=== PATIENT | male | born 1970 | race Caucasian/White ===

== ENCOUNTER 2017-10-29 19:03 | Emergency (ER) | payer BC, SELFPAY ==
[2017-10-29 19:05] VITALS: BP 151/91; PULSE 69; RESP 20; TEMP 36.8; O2SAT 99; BMI 39.6
[2017-10-29 19:53] LABS: Absolute Neutrophil Count 6.2 X10^3/uL (2.0-7.7); Basophil# 0.02 X10^3/uL; Basophil% 0.2 % (0-1); Eosinophil# 0.27 X10^3/uL; Eosinophils% 2.9 % (0-5); Hematocrit 41.4 % (40-54); Lymphocyte % 23.4 % (19-41); Mean Corp Hgb Conc 33.8 g/gl (32-36); Mean Corpuscular Hgb 28.3 pg (27.0-32.0); Mean Corpuscular Volume 83.8 fL (80-94); Monocyte# 0.68 X10^3/uL; Monocyte% 7.2 % (0-10); Neutrophil # 6.21 X10^3/uL (2.7-7.7); Neutrophil % 66.2 % (47-70); Platelet Count 179 K/mm3 (150-450); RBC Distribution Width SD 39.1 fl (35.1-43.9); Red Blood Count 4.94 M/mm3 (4.6-6.2); White Blood Count 9.4 K/mm3 (4.4-11.0)
[2017-10-29 19:56] LABS: POSITIVE COUNT NO; POSITIVE DIFFERENTIAL NO; POSITIVE MORPHOLOGY NO
[2017-10-29 20:14] LABS: Anion Gap 10 (5-15); BUN 13 mg/dL (7-18); BUN/Creat Ratio 12.5 RATIO (10-20); Chloride 105 mmol/L (98-107); Creatinine, Serum 1.04 mg/dL (0.70-1.30); EST Glomerular Filtration Rate 82 mL/min (>60); Est Glom Filt Rate - Afr Amer 99 mL/min (>60); Estimated Creatinine Clearance 97.41 ml/min; Glucose 87 mg/dL (74-106); Potassium 3.6 mmol/L (3.5-5.1); Sodium Level 142 mmol/L (136-145)
--- NOTE | 2017-10-29 20:24 | RAD_ITS ---
STUDY: X-RAY CHEST REASON FOR EXAM: Male, 47 years old. Chest pain TECHNIQUE: 2 views of the chest were obtained COMPARISON: December 17, 2012 chest radiograph FINDINGS: No lung consolidation, pleural effusion or pneumothorax. Bilateral perihilar streaky opacities. Degenerative changes in the thoracic spine. Cardiac size is within normal limits. Osseous structures demonstrate no acute abnormalities. IMPRESSION: No evidence for focal airspace disease. Electronically Signed: Luis Wood, at 20:38 EDT Tel , Service support , RAD/Chest PA and Lateral
--- NOTE | 2017-10-29 22:08 | ED.RN ---
reji external grinder tender nurse made aware pt left without being seen with iv in hand.
== END 2017-10-29 22:44 | disposition left against medical advice (07) ==
LOC: ED 22:29
PROVIDERS: Emergency Provider Emergency Medicine; Family Provider Family Medicine; PCP Family Medicine
DX: R07.9 Chest pain, unspecified (principal)
CPT/HCPCS: 71046; 80048; 84484; 85025; A4216

== ENCOUNTER → 2017-10-31 11:26 | Outpatient (CLI) | payer BC, SELFPAY ==
[2017-10-31 14:18] LABS: Absolute Lymphocyte Count 1.31 X10^3/ul (0.83-4.51); Absolute Neutrophil Count 3.8 X10^3/uL (2.0-7.7); Basophil# 0.02 X10^3/uL; Basophil% 0.3 % (0-1); Eosinophil# 0.28 X10^3/uL; Eosinophils% 4.7 % (0-5); Hematocrit 44.3 % (40-54); Hemoglobin 15.2 g/dl (13.0-16.5); Lymphocyte # 1.31 X10^3/ul (4.0); Lymphocyte % 22.2 % (19-41); Mean Corp Hgb Conc 34.3 g/gl (32-36); Mean Corpuscular Volume 84.5 fL (80-94); Mean Platelet Vol. 9.8 fl (6.2-12.0); Monocyte# 0.44 X10^3/uL; Monocyte% 7.5 % (0-10); Neutrophil # 3.83 X10^3/uL (2.7-7.7); Platelet Count 203 K/mm3 (150-450); Red Blood Count 5.24 M/mm3 (4.6-6.2); White Blood Count 5.9 K/mm3 (4.4-11.0)
[2017-10-31 14:21] LABS: POSITIVE COUNT NO; POSITIVE DIFFERENTIAL NO; POSITIVE MORPHOLOGY NO
[2017-10-31 14:42] LABS: ALB/GLOB Ratio 0.9 RATIO (0.9-2.4); AST(SGOT) 35 U/L (15-37); Alanine Aminotransfer ALT/SGPT 67 U/L (16-61); Alkaline Phosphatase 81 U/L (45-117); Anion Gap 6 (5-15); BUN 17 mg/dL (7-18); BUN/Creat Ratio 15.3 RATIO (10-20); Calcium,Total 9.8 mg/dL (8.5-10.1); Chloride 103 mmol/L (98-107); Creatinine, Serum 1.11 mg/dL (0.70-1.30); EST Glomerular Filtration Rate 76 mL/min (>60); Est Glom Filt Rate - Afr Amer 92 mL/min (>60); Globulin 4.5 g/dL (2.2-4.2); Glucose 108 mg/dL (74-106); Potassium 4.3 mmol/L (3.5-5.1); Protein, Total 8.5 g/dL (6.4-8.2); Sodium Level 140 mmol/L (136-145); Thyroid Stim Hormone (TSH) 2.51 uIU/mL (0.358-3.74)
== END ==
PROVIDERS: Family Provider Family Medicine; PCP Family Medicine; Visit Provider Family Medicine
DX: F32.9 Major depressive disorder, single episode, unspecified (principal)
CPT/HCPCS: 36415; 80053; 84443; 85025

== ENCOUNTER → 2018-06-28 15:07 | Outpatient (CLI) | payer OTHER, SELFPAY ==
--- NOTE | 2018-06-28 15:13 | RAD_ITS ---
STUDY: X-RAY CHEST REASON FOR EXAM: Male, 47 years old. Bronchitis TECHNIQUE: PA and lateral views of the chest. COMPARISON: 10/29/2017 FINDINGS: The lungs are clear and expanded. There is no demonstrated pleural abnormality. Normal size heart. Normal mediastinum and truman. Normal visualized pulmonary arteries. Normal visualized aortic arch and descending thoracic aorta. There are diffuse degenerative changes of the visualized thoracic spine. Normal visualized ribs, clavicles, and shoulders. There is no demonstrated abnormality of the visualized soft tissue structures of the upper abdomen. RAD/Chest PA and Lateral IMPRESSION: No airspace consolidation or pleural effusion. Stable exam. Electronically Signed: Willian Jones MD at 15:29 EST , Service support ,
== END ==
PROVIDERS: Family Provider Family Medicine; PCP Family Medicine; Referring Provider Family Medicine; Visit Provider Family Medicine
DX: J40 Bronchitis, not specified as acute or chronic (principal)
CPT/HCPCS: 71046

== ENCOUNTER → 2019-07-30 11:25 | Outpatient (CLI) | payer OTHER, SELFPAY ==
--- NOTE | 2019-07-30 11:31 | RAD_ITS ---
STUDY: X-RAY CHEST REASON FOR EXAM: Male, 48 years old. Acute bronchitis, sob and cough x 4 days TECHNIQUE: PA and lateral views of the chest. COMPARISON: Comparison is made with prior examination dated June 28, 2018. FINDINGS: Hyperinflation. The lungs are clear. There is no demonstrated pleural abnormality. Normal size heart. Normal mediastinum and truman. Normal visualized pulmonary arteries. There is atherosclerotic tortuosity of the aortic arch and descending thoracic aorta. There are diffuse degenerative changes of the visualized thoracic spine. Normal visualized ribs, clavicles, and shoulders. There is no demonstrated abnormality of the visualized soft tissue structures of the upper abdomen. RAD/Chest PA and Lateral IMPRESSION: Hyperinflation. The lungs are clear. Electronically Signed: Josias Logan, at 13:10 EDT , Service support ,
== END ==
PROVIDERS: PCP Family Medicine; Referring Provider Family Medicine; Visit Provider Family Medicine
DX: J20.9 Acute bronchitis, unspecified (principal)
CPT/HCPCS: 71046

== ENCOUNTER → 2019-08-18 14:28 | Outpatient (CLI) | payer OTHER, SELFPAY ==
[2019-08-18 18:06] LABS: Absolute Neutrophil Count 6.8 X10^3/uL (2.0-7.7); Basophil# 0.04 X10^3/uL; Basophil% 0.4 % (0-1); Eosinophil# 0.19 X10^3/uL; Hematocrit 45.1 % (40-54); Hemoglobin 14.8 g/dL (13.0-16.5); Lymphocyte % 18.2 % (19-41); Mean Corp Hgb Conc 32.8 g/dL (32-36); Mean Corpuscular Hgb 27.8 pg (27.0-32.0); Mean Corpuscular Volume 84.6 fL (80-94); Mean Platelet Vol. 9.6 fl (6.2-12.0); Monocyte# 0.53 X10^3/uL; Monocyte% 5.7 % (0-10); NRBC Flagged by Analyzer 0 % (0-5); Neutrophil # 6.82 X10^3/uL (2.7-7.7); Neutrophil % 73.3 % (47-70); Platelet Count 231 K/mm3 (150-450); RBC Distribution Width CV 12.4 % (11.6-14.6); RBC Distribution Width SD 37.8 fl (35.1-43.9); Red Blood Count 5.33 M/mm3 (4.6-6.2); White Blood Count 9.3 K/mm3 (4.4-11.0)
[2019-08-18 18:20] LABS: Erythrocyte Sedimentation Rate 11 mm/hr (0-15)
[2019-08-18 18:31] LABS: Internal QC Validated? YES +Cl - CLEAR BKGD; Monotest Negative (Negative)
[2019-08-18 18:35] LABS: ALB/GLOB Ratio 1.1 RATIO (0.9-2.4); AST(SGOT) 27 U/L (15-37); Alanine Aminotransfer ALT/SGPT 47 U/L (16-61); Albumin, Serum 4.3 g/dL (3.2-5.0); Alkaline Phosphatase 79 U/L (45-117); Anion Gap 7 (5-15); BUN 15 mg/dL (7-18); BUN/Creat Ratio 12.4 RATIO (10-20); Calcium,Total 9.4 mg/dL (8.5-10.1); Chloride 103 mmol/L (98-107); Creatinine, Serum 1.21 mg/dL (0.70-1.30); EST Glomerular Filtration Rate 68 mL/min (>60); Est Glom Filt Rate - Afr Amer 82 mL/min (>60); Glucose 83 mg/dL (74-106); Potassium 3.4 mmol/L (3.5-5.1); Protein, Total 8.3 g/dL (6.4-8.2); Sodium Level 137 mmol/L (136-145); Thyroid Stim Hormone (TSH) 3.96 uIU/mL (0.358-3.74)
== END ==
PROVIDERS: PCP Family Medicine; Referring Provider Family Medicine; Visit Provider Family Medicine
DX: R53.83 Other fatigue (principal)
CPT/HCPCS: 36415; 80053; 84443; 85025; 85652; 86308

== ENCOUNTER 2019-10-01 13:32 | Emergency (ER) | payer OTHER, SELFPAY ==
[2019-10-01 13:34] VITALS: BP 132/85; PULSE 64; RESP 17; TEMP 36.3; O2SAT 97; BMI 37.8
--- NOTE | 2019-10-01 13:47 | CT_ITS ---
STUDY: CT BRAIN WITHOUT CONTRAST REASON FOR EXAM: Male, 49 years old. PT STATED HIT POSTERIOR HEAD AT WORK TODAY RADIATION DOSAGE (If Supplied By Facility): CTDIvol = ( 60.81 ) mGy, DLP = ( 1021.47 ) mGycm TECHNIQUE: Transaxial CT imaging of the brain was performed without administration of intravenous contrast material. Individualized dose optimization techniques were used for this CT. COMPARISON: No relevant priors. FINDINGS: Normal soft tissue structures. Normal calvarium. Normal size ventricles and extra-axial spaces for the patient''s age. Normal white matter tracts of the cerebral hemispheres. Normal basal ganglia and thalami. Normal brainstem. Normal cerebellum. There is no intracranial hemorrhage. There are no findings of an acute ischemic infarction. Normal visualized paranasal sinuses. CT/Brain/Head without Contrast IMPRESSION: Normal unenhanced CT scan of the brain. Electronically Signed: Josias Logan, at 14:29 EDT , Service support ,
--- NOTE | 2019-10-01 13:47 | ED.VIS.GEN ---
History of Present Illness Chief Complaint: Head Injury Informant: Patient Onset: Today Context: Gradual Onset Current Severity: Moderate Maximum Severity: Moderate Narrative: Patient presents secondary to head injury. Around 7 AM this morning he was walking through a door at work when the metal closing mechanism broke and hit him in the back of the head. He was not knocked to the ground. He did take pain away at that time. As the day has progressed he has had increasing headache to the left posterior scalp radiating up across the left scalp. He does report some nausea and light sensitivity. He denies neck pain or pain radiating to his arms. - Past Medical History (1) Hypothyroid Status: Chronic (2) Depression Status: Chronic Past Medical History - Allergies and Home Meds Allergies/Adverse Reactions: Allergies No Known Allergies Allergy (Verified 10/01/19 13:33) Primary Care Physician: Ele Bird MD [Primary Care Provider] - Prior records reviewed: Yes Surgical History: tonsillectomy, Microdiscectomy of the back Lives: Spouse/ Significant Other Smoking Status: Never smoker Review of Systems General: Denies: Chills, Fever Eyes: Reports: - - Mild light sensitivity. Denies: Visual changes - bilaterally ENT: Denies: Bilateral ear pain, Sore throat Cardiovascular: Denies: Chest pain Respiratory: Denies: Dyspnea, Cough Gastrointestinal: Reports: Nausea. Denies: Abdominal pain, Vomiting Musculoskeletal: Denies: Neck pain, Back pain Skin: Denies: Rash, Wounds Neurological: Reports: Headache. Denies: Weakness, Parasthesia, Numbness Hematologic: Denies: Easy bruising, Easy bleeding Allergy: Denies: Uticaria Physical Exam Vital Signs/Narrative: Vital Signs Temp Pulse Resp BP Pulse Ox 10/01/19 13:34 97.3 F L 64 17 132/85 H 97 Inital Vital Signs reviewed: Yes General: Well nourished, Well developed Head: Normocephalic, Atraumatic, - - No lacerations, abrasions, or ecchymosis. ENT: Moist mucous membranes Neck: Supple, - - No cervical tenderness. Cardiovascular: Regular rate, Regular rhythm Respiratory: No distress, CTA bilaterally Abdomen: Soft, Nontender Back: Nontender Extremities: Nontender Skin: Normal color, No rash Neurological: Alert, Oriented x3, Normal Strength, Normal Sensation Psychological: Normal affect Diagnostic/Tx/Re-eval Impressions Brain CT 10/01/19 13:47 IMPRESSION: Normal unenhanced CT scan of the brain. Electronically Signed: Josias Yousifrobfouzia, at 14:29 EDT , Service support , 10/01/19 13:47 CT Head [Brain/Head without Contrast] [CT] Stat - Medical Decision Making Patient was given Tylenol here for pain. CTs head is unremarkable. He is given restrictions to be allowed to sit or stand as needed at work. He can use Tylenol or ibuprofen at home for pain. He is given instructions on close head injury. ED Disposition - Plan for ED Patient: Disposition: Home or Assisted Living Diagnosis: Closed head injury Instructions: ED Head Injury Adult Referrals: [facility] [GROUP OF PHYSICIANS] - 3-5 Days
[2019-10-01] MEDS: Acetaminophen 500 MG Tablet 1000 MG PO (14:45)
== END 2019-10-01 15:21 | disposition home or self-care (01) ==
PROVIDERS: Emergency Provider Emergency Medicine; PCP Family Medicine
DX: S09.90XA Unspecified injury of head, initial encounter (principal); W22.09XA Striking against other stationary object, initial encounter
CPT/HCPCS: 70450; 99283

== ENCOUNTER 2019-10-04 10:10 | Emergency (ER) | payer OTHER, SELFPAY ==
[2019-10-04 10:12] VITALS: BP 149/96; PULSE 60; RESP 15; TEMP 36.7; O2SAT 97; BMI 36.6
--- NOTE | 2019-10-04 10:33 | CT_ITS ---
STUDY: CT CERVICAL SPINE WITHOUT CONTRAST REASON FOR EXAM: Male, 49 years old. Trauma, hit in back of head 3 days ago, no LOC. Complains of neck stiffness and pain worse on the left. No prior surgery. RADIATION DOSAGE (If Supplied By Facility): CTDIvol = ( 26.53 ) mGy, DLP = ( 661.10 ) mGycm TECHNIQUE: High resolution transaxial imaging was performed without contrast material. Sagittal and coronal images were reconstructed. Individualized dose optimization techniques were used for this CT. COMPARISON: None FINDINGS: Normal craniovertebral junction. Normal anterior atlantoaxial articulation. Normal odontoid process. There is straightening of the normal cervical lordosis. Negative for fracture of the cervical spine. C2-3: Normal endplates. Normal disc height and morphology. Normal central canal and intervertebral neuroforamina. C3-4: Normal endplates. Normal disc height and morphology. Normal central canal and intervertebral neuroforamina. C4-5: Minimal degenerative disc and joint changes without central stenosis or foraminal narrowing. C5-6: Degenerative disc narrowing and uncovertebral arthrosis, left greater than right. Posterior disc osteophyte with borderline spinal stenosis and moderate foraminal narrowing on the left. Mild foraminal narrowing on the right C6-7: Degenerative disc narrowing and uncovertebral arthrosis. Mild spinal stenosis mild foraminal narrowing on the right and severe foraminal narrowing on the left. C7-T1: Minor degenerative disc and joint changes without central stenosis or foraminal narrowing. Normal visualized soft tissue structures. CT/Spine Cervical without Contras IMPRESSION: Straightening of the cervical spine with otherwise normal alignment. Negative for acute fracture of cervical spine. Degenerative disc and joint changes as stated above. Electronically Signed: Meghan Horner MD at 11:06 EDT , Service support ,
--- NOTE | 2019-10-04 10:36 | ED.VIS.GEN ---
History of Present Illness Informant: Patient Onset: Days - 3 days ago Context: Sudden Onset Timing: Continuous Quality: sharp Location: left side of head and neck Current Severity: Moderate Maximum Severity: Moderate Worsened by: movement Relieved by: nothing Associated Symptoms: bright lights and loud noises Narrative: 49-year-old male presents to the emergency department with headache and neck pain. He was seen here 3 days ago. 3 days ago he was at work when the metal box over the door frame fell and hit him on the back of his head, on the left side. He did not lose consciousness but he states he did suffer whiplash from this. He was seen here at the emergency department and had a CT scan of his brain that was unremarkable and discharged home. He is accompanied this morning by his . He states he continues to have a left-sided headache that is been constant since this occurred 3 days ago. He also has some left-sided neck pain and states he is getting some tingling sensation and both forearms hands and all 5 fingers on both hands as well. He denies weakness. He has no numbness. No nausea or vomiting blurry or double vision or loss of vision or difficulties with speech or ambulation. Initially they were telling the triage nurse that he is confused but patient and after further discussion state he is not actually confused he is very irritable and angry. Patient states that he feels this way because he does not feel well. He is not confused and has not had difficulty with speech. No vomiting. He has not been taking anything for his headaches. His brings him back for concern if he is able to go to work. Prior similar symptoms: No Recent Illness/Hospitalization: No <Chuck Newton - Last Filed: 10/04/19 11:11> <Yair Avila - Last Filed: 10/04/19 11:22> Chief Complaint: Head Injury Past Medical History Prior records reviewed: Yes Past Medical History: - - GERD Surgical History: tonsillectomy, - - Microdiscectomy lumbar spine Lives: With Family Smoking Status: Never smoker Alcohol: Occasional Drugs: None <Chuck Newton - Last Filed: 10/04/19 11:11> <Yair Avila - Last Filed: 10/04/19 11:22> - Allergies and Home Meds Allergies/Adverse Reactions: Allergies No Known Allergies Allergy (Verified 10/04/19 10:15) Primary Care Physician: Ele Bird MD [Primary Care Provider] - Review of Systems All systems negative except as indicated General: Denies: Chills, Fever, Malaise Eyes: Denies: Visual changes - bilaterally, Blurred Vision - bilaterally, Diplopia ENT: Denies: Bilateral ear pain, Rhinorrhea, Sore throat Cardiovascular: Denies: Chest pain, Palpitations, Heart racing Respiratory: Denies: Dyspnea, Cough, Sputum, Dyspnea on exertion Gastrointestinal: Denies: Abdominal pain, Nausea, Vomiting, Diarrhea Genitourinary: Denies: Dysuria, Hematuria, Frequency Musculoskeletal: Reports: Neck pain. Denies: Myalgias, Arthralgias, Back pain, Swelling, Extremity Pain Skin: Denies: Rash, Abscess, Abrasions, Wounds Neurological: Reports: Headache, Parasthesia. Denies: Weakness, Numbness Hematologic: Denies: Easy bruising, Easy bleeding <Chuck Newton - Last Filed: 10/04/19 11:11> Physical Exam Vital Signs/Narrative: Vital Signs Temp Pulse Resp BP Pulse Ox 10/04/19 10:12 98.0 F 60 15 149/96 H 97 Inital Vital Signs reviewed: Yes General: Well nourished, Well developed, No Acute Distress Head: Normocephalic, Atraumatic Eyes: Perrl, EOMI ENT: Moist mucous membranes, TM's clear Neck: Supple, No lymphadenopathy, No JVD, - - Patient has a left-sided cervical paraspinal muscle tenderness on palpation. He is able to move his neck normally actively in all directions. He has no midline cervical thoracic or lumbar spinal tenderness to palpation. Strength testing of both upper extremities was 5 out of 5 as well as both lower extremities was 5 out of 5 as well. Cardiovascular: Regular rate, Regular rhythm, No murmurs Respiratory: No distress, CTA bilaterally, Chest nontender Abdomen: Soft, Nontender, Nondistended, Normal bowel sounds, No masses Back: Nontender, Normal Inspection. Negative for: CVA tenderness, Spinal tenderness Extremities: Nontender, No edema Skin: Normal color, No rash, No Trauma Neurological: Alert, Oriented x3, Cranial nerves II-XII grossly intact, Normal Strength, Normal Sensation, Normal Gait Psychological: Normal affect, Normal Mood <Chuck Newton - Last Filed: 10/04/19 11:11> Vital Signs/Narrative: Vital Signs Temp Pulse Resp BP Pulse Ox 10/04/19 10:12 98.0 F 60 15 149/96 H 97 <Yair Avila - Last Filed: 10/04/19 11:22> Diagnostic/Tx/Re-eval Impressions Cervical Spine CT 10/04/19 10:33 IMPRESSION: Straightening of the cervical spine with otherwise normal alignment. Negative for acute fracture of cervical spine. Degenerative disc and joint changes as stated above. Electronically Signed: Meghan Horner MD at 11:06 EDT , Service support , 10/04/19 10:33 CT Cervical [Spine Cervical without Contras] [CT] Stat - Medical Decision Making Patient's neurological exam is nonfocal. His strength testing of both upper and lower extremities is 5 out of 5 and normal. Discussed with patient and at this time we do not find an indication for repeat imaging of his brain. He is not anticoagulated. His symptoms are likely secondary to concussion. However because of his neck pain and upper extremity symptoms we did a CT scan of his cervical spine. This was unremarkable. Patient reassured. I discussed supportive care with he and his . Patient will be given a work excuse he will continue supportive care and follow-up as scheduled on Sunday with his primary care physician. He was given return precautions as well. <Chuck Newton - Last Filed: 10/04/19 11:11> - Medical Decision Making Seen and evaluated independently and in conjunction with physician social work assistant. Agree with notes above unless documented otherwise. Discussed thoroughly with patient and , they both agree that he is not confused as much as he is having trouble mentating, focusing, etc. He is not aphasic. He does not have weakness in his arms, just some numbness. He is excellent strength in all 4 extremities and no ataxia. There is no indication to repeat the CT, he is not on anticoagulants. We did image his neck given his discomfort, whiplash mechanism, and neurologic symptoms in his upper extremities. That is negative as above, reassured patient we feel he is safe to follow-up and if persistent he may need advanced imaging, however it is possible that his numbness will resolve if he just has a neurapraxia. They are comfortable following up with his doctor, they have an appointment for after the weekend. <Yair Avila - Last Filed: 10/04/19 11:22> ED Disposition <Chuck Newton - Last Filed: 10/04/19 11:11> <Yair Avila - Last Filed: 10/04/19 11:22> - Plan for ED Patient: Disposition: Home or Assisted Living Diagnosis: Neck muscle strain, Closed head injury with concussion, Paresthesia and pain of both upper extremities Instructions: ED Concussion, ED Sprain Strain Neck Referrals: Ele Bird MD [Primary Care Provider] -
[2019-10-04 11:22] VITALS: RESP 16
--- NOTE | 2019-10-04 11:22 | ED.RN ---
REVIEWED D/C INSTRUCTIONS, FOLLOW UP CARE, AND S/S THAT WOULD WARRANT A RETURN TO THE ED WITH PT. PT VERBALIZED AN UNDERSTANDING AND DENIES FURTHER QUESTIONS FOR THIS RN. PT SKIN P/W/D, RESP EVEN AND UNLABORED, PT A&O X 3, NO DISTRESS NOTED. PT AMBULATED OUT OF ED, GAIT STEADY.
== END 2019-10-04 11:23 | disposition home or self-care (01) ==
PROVIDERS: Emergency Provider Physician Assistant Medical; PCP Family Medicine
DX: S06.0X0A Concussion without loss of consciousness, initial encounter (principal); S16.1XXA Strain of muscle, fascia and tendon at neck level, initial encounter; W22.8XXA Striking against or struck by other objects, initial encounter; Y93.9 Activity, unspecified; Y92.9 Unspecified place or not applicable; Y99.0 Civilian activity done for income or pay; R20.2 Paresthesia of skin
CPT/HCPCS: 72125; 99282

== ENCOUNTER 2019-10-21 09:41 | Emergency (ER) | payer OTHER, SELFPAY ==
[2019-10-13 10:19] VITALS: BMI 36.6
[2019-10-21 09:42] VITALS: BP 135/92; PULSE 67; RESP 16; TEMP 36.4; O2SAT 100; BMI 36.6
[2019-10-21 09:58] VITALS: BP 135/92; PULSE 67; RESP 16; TEMP 36.4; O2SAT 100
--- NOTE | 2019-10-21 10:05 | ED.DCSUM_ITS ---
- ER Visit Summary Date of Service: 10/21/19 Chief Complaint: [Headache, neck pain, paresthesias, loss of taste] History of Present Illness: The patient is a 49 M [resents to the emergency department with multiple complaints stemming from an injury to his head that occurred on September 30. While at work the opening mechanism for a door fell and struck him on the back of the head. No loss of consciousness. Patient was seen in the emergency department and has had CT scans of his head and neck which were negative. Patient actually had 2 scans of his head. About 4 5 days ago he started having loss of taste. Patient's been having intermittent numbness and tingling in both hands and both feet for about 4 days. Continues to complain of intermittent headaches as well as photophobia. Patient is in the process of following up with neurology and believes they will have an appointment in 2 days. Because of the paresthesias [employer]. refer them to the ER to make sure that he did not have a blockage. Patient does state that at times his hands and feet will turn a purplish color.] Physical Examination: [HEENT-PERRLA, EOMI. Cranial nerves II through XII grossly intact. TMs clear. Mucous membranes moist. No adenopathy. Cardiovascular-regular rate and rhythm without murmur or ectopy Lungs-clear to auscultation, chest wall stable without crepitus or subcu emphysema Abdomen-normoactive bowel sounds, soft, nontender, no rebound or rigidity, no peritoneal signs. Neuro axiv-dgzrom-ahzx and heel contreras testing within normal limits, negative Romberg, negative for drift, fundi benign. Extremities-intact ?4, normal range of motion, normal pulses, atraumatic. Patie nt has normal cap refill and normal pulses in upper and lower extremities.] Test Results: [None indicated] Emergency Department Course and Treatment: [At this point I do not feel any further work-up is indicated. He is going to follow-up with neurology and he will likely require MRI of brain and possibly neck to evaluate further. I do not feel emergent MRI is indicated at this time.] I suspect patient likely has a postconcussive syndrome. Treatment Plan: [Follow-up with neurology] Disposition: [Discharged home in stable condition] Impression: [Postconcussive syndrome] This note was generated with Dragon dictation software. It may contain incorrect words, spelling, and punctuation that were not noted in review of the chart prior to signing ED Disposition - Plan for ED Patient: Referrals: Ele Bird MD [Primary Care Provider] -
--- NOTE | 2019-10-21 10:08 | ED.DEP ---
ED Disposition - Plan for ED Patient: Instructions: ED Concussion Referrals: Ele Bird MD [Primary Care Provider] - 3-5 Days Additional Instructions: Follow up with neurology for further evaluation including possible outpatient MRI of head and neck
== END 2019-10-21 10:12 | disposition home or self-care (01) ==
LOC: ED 10:12
PROVIDERS: Emergency Provider Emergency Medicine; PCP Family Medicine
DX: G44.309 Post-traumatic headache, unspecified, not intractable (principal); F07.81 Postconcussional syndrome; E03.9 Hypothyroidism, unspecified; F32.9 Major depressive disorder, single episode, unspecified
CPT/HCPCS: 99282

== ENCOUNTER → 2019-10-30 06:22 | Outpatient (CLI) | payer OTHER, SELFPAY ==
[2019-10-27 09:00] VITALS: BMI 36.6
--- NOTE | 2019-10-30 06:25 | MRI_ITS ---
STUDY: MRI BRAIN WITHOUT CONTRAST REASON FOR EXAM: Male, 49 years old. concussion,h/a, vision disturbance, left sided pain, injury 10/01/19 TECHNIQUE: Standardized multiplanar fat and water weighted pulse sequences were obtained. COMPARISON: CT of the head dated October 01, 2019 FINDINGS: Normal size of the ventricles and extra-axial spaces for the patient''s age. Normal white matter tracts of the supratentorial brain. Normal bilateral basal ganglia. Normal thalami. There is no extra-axial fluid accumulation. Normal flow voids within the major intracranial circulation suggesting patency by spin echo criteria. Normal sella turcica, pituitary gland, infundibular stalk, optic chiasm and hypothalamus. Normal tectal plate and pineal gland. Normal midbrain, cornelio and medulla. Normal cerebellum. Normal basal cisterns. Normal bilateral temporal bones. MRI/Brain without Contrast IMPRESSION: Unremarkable unenhanced MRI of the brain. Electronically Signed: Thomas Hollingsworth MD at 15:49 EDT Tel , Service support ,
--- NOTE | 2019-10-30 06:25 | MRI_ITS ---
STUDY: MRI CERVICAL SPINE WITHOUT CONTRAST REASON FOR EXAM: Male, 49 years old. neck pain,radiculopathy, cervical strain, left sided pain, injury 10/01/19 TECHNIQUE: Standardized fat and water weighted pulse sequences were obtained in the sagittal and axial planes. COMPARISON: CT dated October 04, 2019 FINDINGS: Normal foramen magnum and brainstem-cervical cord junction. Normal cervical lordosis. C2-3: Normal endplates. Normal disc height, signal and morphology. Normal central canal and intervertebral neural foramina. C3-4: Normal endplates. Normal disc height, signal and morphology. Normal central canal and intervertebral neural foramina. C4-5: Normal endplates. Normal disc height, signal and morphology. Normal central canal and intervertebral neural foramina. C5-6: There is moderate disc space narrowing and endplates spondylosis. Mild disc osteophyte complex with mild central canal stenosis. Uncovertebral arthropathy with minimal right and moderate left foraminal stenosis. Findings are grossly stable since prior examination. C6-7: There is moderate disc space narrowing and endplates spondylosis. Mild disc osteophyte complex asymmetric to the left with mild central canal stenosis. Uncovertebral arthropathy with minimal right and severe left foraminal stenosis. Findings are grossly stable since the prior examination. C7-T1: Normal endplates. Normal disc height, signal and morphology. Normal central canal and intervertebral neural foramina. Normal cervical cord. MRI/Spine Cervical (Routine) IMPRESSION: C5/C6: Moderate left foraminal stenosis. C6/7: Severe left foraminal stenosis. Electronically Signed: Thomas Hollingsworth MD at 15:55 EDT Tel , Service support ,
== END ==
PROVIDERS: PCP Family Medicine; Referring Provider Physician Assistant; Visit Provider Physician Assistant
DX: S06.0X9A Concussion with loss of consciousness of unspecified duration, initial encounter (principal); S09.90XA Unspecified injury of head, initial encounter; M54.12 Radiculopathy, cervical region; S16.1XXA Strain of muscle, fascia and tendon at neck level, initial encounter
CPT/HCPCS: 70551; 72141

== ENCOUNTER 2020-05-19 16:00 | Outpatient (RCR) | payer OTHER, SELFPAY ==
[2019-10-08 08:17] VITALS: BMI 36.6
--- NOTE | 2019-10-09 11:50 | HP.PTEVAL_ITS ---
Patient's Visit Information TEODORO SCHMITT is a 49 year old M referred to Physical Therapy by YAJAIRA Flores with a diagnosis of Head injury. Date of Evaluation: 10/09/19 Physical Therapist: Erik Olea, SWETA, OCS, CSCS - Visit Plan Frequency: 3x /Week Duration: 4 Weeks Plan: 3x/week for 4 weeks. Please focus on L sided neck STM, stretching and ROM, progress to strengthening of posture and neck. Also work on VOR balance gently and progression of home adaptation ex(EG to see weekly but monitor each session) - Subjective Head injury at work. 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 Did not get knocked out but eyes went balck for a second. Had bad OCHOA and that was in the mroning and stayed until 10 am but OCHOA and eye pain and fatigue set in. Went home. Went to ER then later on. Did catscan whcih showed no breaks. OCHOA got worse adn arms tingling and irritable a few days later and went back to ER and did CT on neck whcih was normal. Now on meds and PT before neurologist. OCHOA fairly constant and worse with lights and sounds. It is neck up to L eye and wraps around front, can be whole head. Has had 10/10 and gets wrose with frustration in busy environments. Also having trouble sometimes figuring what to say. Otherwise 3/10. Can't lie on L side at night due to feeling like a bad bruise. Sleep is not great as it is hard to get comfortable with L side of head. Better in recliner. Neck pain goes down between shoulder baldes but mostly L neck 4/10. Gets tingling in arms and hands feels cold. Intermittent. Sometimes numbness in both hands. No real pattern to it. Has vertigo spinning here and there, Often times walking in busy environment. Stadning up fast can cause it or bending over. Spinning can last a minute or less. Riding in car over hump in hill can cause it. Not working, is off until next Sunday. 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 Hobbies when healthy include BBQ and ex. None of these things are happening. Yard work and outdoor work is not happening. Dresses self, bathroom, shower al I. Steps not a problem as he is on one floor. - Pain OCHOA Pain Intensity (Out of 10): 6 Pain Intensity Range: 0, 10 Neck pain Pain Intensity (Out of 10): 4 Pain Intensity Range: 0, 7 - Objective c/s AROM right rotation 70, L 35 with pulling pain L neck. Tender L neck UT. reflexes 2/3 bi and tri. Sensation UE WNL to gross light touch. UE AROM WFL but hesitant to lift OH. Strength 4/5 UE without myotomal abnormalities. Positional tests including B hallpike nano adn roll tests are negative. Oculomotor: Slow to respond to requests, low quality of movement. no nystagmus with gaze or head shake. - ocular tilt. - skew eye deviation. insufficient convergence. + R head thrust. Saccades are slow but able, Pursuit is slow but able. VOR only gets 2 turns horiz before increased symptoms and frustration, vertical is much better. Both seated in quiet room and slow head mvoement. Throughout session, pt slow to respond and frustrated with upper level information adn requests, slow to process and poor memory. - Balance Scores Functional Gait Assessment Score: 24 % Disability: 20.0000 - Goals Goal 1:: Pt feel 80% better in OCHOA, neck pain and dizzyness Goal Time Frame: 4-6 Weeks Goal 2:: Pt sleep through night without interruption Goal Time Frame: 4-6 Weeks Goal 3:: Full neck ROM without hesitation or pain. Goal Time Frame: 4-6 Weeks Goal 4:: VOR x 60 seconds fast without symptoms Goal Time Frame: 4-6 Weeks Goal 5:: 30/30 FGA Goal Time Frame: 4-6 Weeks Goal 6:: Ready to return to work without limitations. Goal Time Frame: 4-6 Weeks - Rehabilitation Potential Physical Therapy Diagnosis: Concussion with vestibular component and neck soft tissue involvement Rehabilitation Potential: Fair - Anticipated Interventions Patient/Client Instruction: Educate patient on: Condition, Plan of Care For the Purpose of:: To decrease pain, To increase ROM, To improve muscle performance and motor function, To improve ability to perform ADL's, To improve performance and independence with ADL's, To improve ability of physical actions for home/community/work/leisure Therapeutic Exercise to Include: Strength training, Balance training, Postural training, Flexibilty training, Passive ROM, Active ROM Comment: adaptation For the Purpose of:: To decrease pain, To improve nutrient delivery to tissue, To improve muscle performance and motor function, To improve ability to perform ADL's, To improve performance and independence with ADL's, To improve gait and locomotor functions Manual Therapy Techniques to Include: Soft tissue mobilization For the Purpose of:: To decrease pain, To improve nutrient delivery to tissue Thank you for the opportunity to evaluate your patient. For Medicare and Medicare HMO plans, please review the plan of care and approve it. It will need to be FAXED BACK to us at [phone] for Medicare purposes. For Medicare only, by signing this I certify the plan of care. Please let me know if there are questions or concerns regarding this plan of care. Physician Signature: Date:
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
--- NOTE | 2019-11-20 14:07 | HP.PTREVAL_ITS ---
YAJAIRA Flores, It has been my pleasure to treat TEODORO SCHMITT over the last 14 visits for Head injury. Please see the progress note below for an update on the physical therapy plan of care! Subjective: bAD ochoa TODAY, not sure why. Not sure why but maybe because he woke up on left side. Feels like a wedge in his head on the top. Been dizzy last co uple days spinning if up and about and this throws balance off. Balance and dizzy has been better until last couple days. Balance and dizzyness at least 80% better before last couple days. OCHOA have been constant but not this bad. No falls. Activities at home are mostly staying in [place], painting cabniets, upkeep on the house. Heat and light bothers him outside. Saw neurologist in [place] who wants him to see neuroopthalmologist for L eye socket abnormality end December and will have drivers test and psycholiguist visit Sunday and [place] doctor for taste and smell. Not taking anything for OCHOA. anymore but may stop by and get something for heads. Neck is stiff today but better overall. Objective/Function: Balance is much better. Neck ROM is full and painfree alt alcon stretches at end of rotations, no pain. UE aROM WFL and without strength deficits. L side of occiput is tender to palpation, SCM is OK. - B hallpike Castaner. - roll test. MSQ psoitions do not cause dizzyness today. Walking VOR safe but gives slight dizzyness after 30 seconds. OVERALL, SIGNIFICANT IMPROVEMENTS IN BALANCE, DIZZYNESS AND NECK PAIN/ROM, STILL HAS BAD DAYS WITH OCHOA FOR UNKNOWN REASON AND CAN HAVE DIZZYNESS WITH LIGHTS OR SOUNDS. Plan Plan: 2X/WEEK FOR 4-5 WEEKS FOR... 1. PROGRESSION OF HOME VESTIBULAR EX AND IN CLINIC VESTIBULAR HEAD MOVEMENT ACTIVITES. 2. iNCREASE AGGRESSIVENESS OF POSTURAL AND CORE ADN LE STRENGTH FOR RETURN TO WORK ANTICIPATION. eXERCISE IN GYMA DN MONITOR HEAD MOVEMENTS RELATIONSHIP TO SYMPTOMS. FAIR PROGNOSIS FOR CONTINUED IMPROVEMENT ALTHOUGH PSYCH AND NEUROOPTHALMOLOGIST AND DRIVING TEST ARE CERTAINLY APPROPRIATE. Goals Goal 1:: Pt feel 80% better in OCHOA, neck pain and dizzyness Goal Time Frame: 4-6 Weeks Goal Progress: Progressing, APPROP. Goal 2:: Pt sleep through night without interruption Goal Time Frame: 4-6 Weeks Goal Progress: INCONSISTENTLY, APPROP Goal 3:: Full neck ROM without hesitation or pain. Goal Time Frame: 4-6 Weeks Goal Progress: Goal Met Goal 4:: VOR x 60 seconds fast without symptoms Goal Time Frame: 4-6 Weeks Goal Progress: Goal Met Goal 5:: 30/30 FGA Goal Time Frame: 4-6 Weeks Goal Progress: Goal Met Goal 6:: Ready to return to work without limitations. Goal Time Frame: 4-6 Weeks Goal Progress: Progressing Anticipated Interventions Patient/Client Instruction: Educate patient on: Condition, Plan of Care For the Purpose of:: To decrease pain, To increase ROM, To improve muscle performance and motor function, To improve ability to perform ADL's, To improve performance and independence with ADL's, To improve ability of physical actions for home/community/work/leisure Therapeutic Exercise to Include: Strength training, Balance training, Postural training, Flexibilty training, Passive ROM, Active ROM Comment: adaptation For the Purpose of:: To decrease pain, To improve nutrient delivery to tissue, To improve muscle performance and motor function, To improve ability to perform ADL's, To improve performance and independence with ADL's, To improve gait and locomotor functions Manual Therapy Techniques to Include: Soft tissue mobilization For the Purpose of:: To decrease pain, To improve nutrient delivery to tissue Please do not hesitate to contact me at [phone] by phone or if you have questions or concerns regarding this new plan of care! Sincerely, Erik Olea, DPT, OCS, CSCS
--- NOTE | 2019-12-24 16:57 | HP.PTDCSUM_ITS ---
It has been my pleasure to treat TEODORO SCHMITT referred by YAJAIRA Flores, with the diagnosis of Head injury for a total of 24 visit(s). Discharge Date: 12/24/19 Please see the following information for a summary of their discharge status. Subjective: Saw [place] doctor today. Says he is doing great physically. Balance is good. Symptoms OCHOA still most days and worse with activity. Meds for OCHOA really help. Dizzyness is described as ightheaded coming up from picking something up. [place] slightly imbalanced after hard workout the other day. Took m eclizine when he got hoe adn it helped. Sleep is OK. activities at home pretty normal outside of driving adn not driving until decision making reaction is better. Physically he could do it. Working out in gym. Psychiatrist gave him Mikel denise has helped. Neuropsychologist may be on the horizon. OCHOA Pain Intensity (Out of 10): 3 Neck pain Pain Intensity (Out of 10): 0 % Improvement: 75 Objective/Function: VORx2 50 seconds with very little symtpoms today. Bend and recover easily today but says it can be problematic at times with slight lightheadedness. Pt has come along nicely and balance and positional changes are going very well. He can continue gym ex [employer] membership. Recommend continuing metal focus and cognitive traisning in speech as this is his biggest problem. Feels 90% better physicall but only 30-40% mentally and with focus. These are also what seems to make OCHOA worse. Goal 1:: Pt feel 80% better in OCHOA, neck pain and dizzyness Goal Progress: 75% Goal 2:: Pt sleep through night without interruption Goal Progress: Goal Met Goal 3:: Full neck ROM without hesitation or pain. Goal Progress: Goal Met Goal 4:: VOR x 60 seconds fast without symptoms Goal Progress: Goal Met Goal 5:: FGA Goal Progress: Goal Met Goal 6:: Ready to return to work without limitations. Goal Progress: No...cognitive issues, OCHOA Plan: d/c PT Discharge Comments: Physical improvements and dizzyness much better. OCHOA and cognitive issues still limiting factors. Recommend continuing Speech and d/c PT. If there are questions or concerns regarding this patient's physical therapy, please feel free to call me at [phone]. Thank you for the referral of this patient. Sincerely, Erik Olea, DPT, OCS, CSCS
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
== END 2020-05-19 19:00 | disposition home or self-care (01) ==
LOC: SP 16:00
PROVIDERS: PCP Family Medicine; Referring Provider Physician Assistant; Visit Provider Physician Assistant
DX: S06.0X0D Concussion without loss of consciousness, subsequent encounter (principal)
CPT/HCPCS: 92507; 92523; 97014; 97110; 97140; 97163; 97164; 97530; G0283

== ENCOUNTER 2020-06-25 16:30 | Outpatient (RCR) | payer OTHER, SELFPAY ==
[2020-04-15 16:02] VITALS: BMI 40.0
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
== END 2020-06-25 19:00 | disposition home or self-care (01) ==
LOC: SP 16:30
PROVIDERS: PCP Family Medicine; Referring Provider Physician Assistant; Visit Provider Physician Assistant
DX: S06.0X0D Concussion without loss of consciousness, subsequent encounter (principal)
CPT/HCPCS: 92507

== ENCOUNTER 2020-09-15 09:45 | Outpatient (RCR) | payer OTHER, SELFPAY ==
[2020-09-01 16:35] VITALS: BMI 40.8
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
== END 2020-09-15 19:00 | disposition home or self-care (01) ==
LOC: PT 09:45
PROVIDERS: PCP Family Medicine; Referring Provider Physician Assistant; Visit Provider Physician Assistant
DX: F07.81 Postconcussional syndrome (principal)
CPT/HCPCS: 97162

== ENCOUNTER → 2021-09-16 | Outpatient (CLI) | payer OTHER, SELFPAY ==
--- NOTE | 2021-09-16 06:52 | MRI_ITS ---
STUDY: MRI BRAIN WITH AND WITHOUT CONTRAST REASON FOR EXAM: Male, 51 years old. head injury TECHNIQUE: Standardized multiplanar fat and water weighted pulse sequences were obtained. IV 25ml Dotarem was administered for the contrast portion of the examination. COMPARISON: MRI of the brain dated OCTOBER 30, 2019. Head CT dated OCTOBER 01, 2019 FINDINGS: Normal size of the ventricles and extra-axial spaces for the patient''s age. There are a limited number of small white matter hyperintensities, distributed throughout the deep white matter tracts of the cerebral hemispheres, consistent with mild chronic white matter ischemic changes. There is no evidence for recent intracranial ischemia or other cause of cytotoxic edema on diffusion weighted imaging (DWI). Normal bilateral frontal poles, and orbital frontal and gyrus recti of the frontal lobes. Normal bilateral temporal tips of the temporal lobes. There are no white matter shear injuries (diffuse axonal injuries). There are no parenchymal hemorrhages or hematomas. There are no findings to suggest prior closed head parenchymal injury of the brain. There is no evidence for recent intracranial ischemia or other cause of cytotoxic edema on diffusion weighted imaging (DWI). Normal bilateral basal ganglia. Normal thalami. There is no extra-axial fluid accumulation. Normal flow voids within the major intracranial circulation suggesting patency by spin echo criteria. Normal venous enhancement. There is no enhancing intra-axial or extra-axial abnormality. No focal parenchymal lesions of the brain or abnormal enhancement. No abnormal thickening or enhancement of meninges or dura. Normal sella turcica, pituitary gland, infundibular stalk, optic chiasm and hypothalamus. Normal tectal plate and pineal gland. Normal midbrain, cornelio and medulla. Normal cerebellum. Normal basal cisterns. Normal bilateral temporal bones. Normal bilateral internal auditory canals. No demonstrated orbital abnormality, within the constraints of a routine brain study. Normal visualized paranasal sinuses. Normal calvarium and skull base. Normal visualized soft tissue structures. Normal visualized upper cervical spine. MRI/Brain W/WO Contrast IMPRESSION: 1. Minimal chronic ischemic of the brain, as described above. 2. No intracranial hemorrhage or evidence of diffuse axonal injury Electronically Signed: Stephane Reyes MD at 14:07 EDT ,
== END | disposition home or self-care (01) ==
PROVIDERS: PCP Family Medicine; Referring Provider Physician Assistant; Visit Provider Physician Assistant
DX: S06.0X0A Concussion without loss of consciousness, initial encounter (principal)
CPT/HCPCS: 70553; A9575

== ENCOUNTER 2022-03-27 08:00 | Outpatient (RCR) | payer OTHER, SELFPAY ==
--- NOTE | 2021-09-21 11:49 | HP.SP.EV_ITS ---
History - History Date of Eval: 09/13/21 Medical Diagnosis (from RX): CLOSED HEAD INJURY W/ CONCUSSION.RX HERE Date of Onset of Diagnosis: 10/01/2019 Previous speech therapy: Yes Results: EXECUTIVE FUNCTIONING: He continues to struggle with prioritizing tasks and processing speed, and often experiences cognitive fatigue after short bursts of work; his reading fluency has improved (though below his premorbid level of f unctioning) with PQRST based approaches, though the additional process and continued disturbance likely complicates functioning; his ability to set change / move freely from one activity to another has gradually improved, and is becoming more reliable. MEMORY: He continues to demonstrate diminished working memory efficiency, though strategies discussed during sessions appear to have had a positive effect on his functioning, however his information encoding, consolidation, and retrieval is still at times scattershot; as mentioned before this is of particular concern given his vocational responsibilities that is heavily dependent on his ability to remain organized and multi-task; this is improving with use of compensatory measures; intact declarative (explicit) memory to include semantic memory (words, ideas, concepts) and episodic memory (personal experiences) , and overall intact nondeclarative (implicit) memory (without conscious recall); no findings suggestive of anterograde amnesia or retrograde amnesia, though assessment time limitations precluded full assessment battery. ATTENTION: His attention is still inconsistent and struggles with attention; this is particularly exacerbated by headaches and poor sleep. VISUOSPATIAL ABILITIES: No visuospatial based abnormalities appreciated throughout the assessment. . LANGUAGE FUNCTIONING: His reading comprehension has been the most notable improvement during the last 2-3 months, though his headaches again impact functioning; his disfluencies do occasionally arise again during periods of headaches, and his rate of speech slows (though this is not unusual for more significant headaches), otherwise his speech is overall effortless and intelligible; no aphasia, anomia, apraxia, or dysarthria appreciated. VOCAL FUNCTIONING: No clinically significant vocal abnormalities observed. 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 Smoking Status: Never smoker Hx Tobacco Use: No - Pain Is pain an issue with your current prescribed condition?: Yes Patient Allergies - Allergies Allergies No Known Allergies Allergy (Verified 11/22/20 13:07) CLQT - CLQT CLQT Administered: Yes CLQT: Cognitive Linguistic Quick Test (CLQT) is a criterion - referenced assessment designed for adults between the ages of 18 and 89 with known or suspected neurological dysfuntions. The CLQT is to assess strength and weaknesses in five cognitive domains. Severity ratings are within normal limits, mild, moderate, severe deficits. The subtests are as follows: Date: 09/21/21 - Attention Attention: Mild - Memory Memory: Mild - Executive Functions Executive Functions: Mild - Language Language: Mild - Visuospatial Skills Visuospatial Skills: Mild - Composite Severity Rating Composite Severity Rating: Mild - Clock Drawing Severity Rating Clock Drawing Severity Rating: WNL - CLQT Comments Impressions Patient was administered the Cognitive-Linguistic Quick Test (CLQT), which is a criterion-referenced assessment designed for adults between the ages of 18 to 89 years old with known or suspected neurological dysfunctions. The CLQT assesses the following cognitive domains - Attention, Memory, Executive Function, Language, and Visuospatial Skills. Tasks completed within this test include Personal Facts, Symbol Cancellation, Confrontation Naming, Clock Drawing, Story Retelling, Symbol Trails, Generative Naming, Design Memory, Mazes, and Design Generation, with each task addressing different cognitive-linguistic functions. . Results of the CLQT are as follows: Cognitive Domain Scores. Personal Facts (memory and language ability): 12/12. Symbol Cancellation (nonlinguistic task of visual attention and perception, integrity of the upper/lower quadrants of the left/right visual allred): 03/18. Confrontation Naming (aphasia, perseveration, verbosity): 02/13. Clock Drawing (screening of all cognitive domains): . Story Retelling (memory and comprehension, arousal, attention, storage capacity, narrative skills): 10/14. Symbol Trails (nonlinguistic task to assess planning, self-monitoring, working memory, and visual attention, and impulsivity): 02/13. Generative Naming (word retrieval skills, perseveration): 08/13 with a perseveration ratio of 0.0 %. Design Memory (nonlinguistic task to assess visual discrimination & analysis, attention, and visual memory, impulsivity, perseveration): 09/09. Mazes (planning, mental flexibility, self-monitoring, visual discrimination, and impulsivity): 08/12. Design Generation (nonlinguistic task of creativity and mental flexibility): 08/17. Severity Rating. Attention: Cognitive Domain Score = 171 - Mild impairment (normal 215-180). Memory: Cognitive Domain Score = 146- Mild impairment (normal 185-155). Executive Functioning: Cognitive Domain Score = 22 - Mild impairment (normal 40-24). Language: Cognitive Domain Score = 28 - Mild impairment (normal 37-29). Visuospatial Skills: Cognitive Domain Score = 78 - Mild impairment (normal 105- 82). Clock Drawing: Score = 12 - WNL (normal 13-12). . Composite Severity Rating: Mild impairment 3.0. Overall, patient presents w/ mild-moderate cognitive impairment s/p traumatic brain injury in 2019. Patient reports that he is unable to return to work d/t cognitive impairment. Reports difficulty w/ sustained and alternating attn, short term and working memory, executive dysfunction. During concrete and abstract generative naming task - patient able to name 10 concrete items (animals) and able to name 8 items in abstract category (letter M) which patient self reported that was more difficult than he thought. Throughout standardized assessment, patient demonstrates difficulty w/ planning & prioritizing, working memory, self-monitoring, metacognition, organization, task initiation and emotional control. Patient reports that as a result of TBI - patient demonstrates difficulty w/ emotional control and he often find it difficult to regulate emotions. Reviewed results of CLQT w/ p atient, as well as plans for continued tx per plan of care targeting complex cognitive tasks at pt. lives independently. [facility] Plan - Plan Plan: Will recommend patient for weekly outpatient speech therapy to address mild to moderate cognitive impairment characterized by deficits in immediate and short-term memory, working memory, word retrieval, executive functioning, attention, problem solving/reasoning and emotional regulation. Patient would benefit from training in compensatory strategies for recall and word retrieval, as well as cognitive training to improve cognitive functioning. Without skilled ST services, the pt is at risk for decreased independence completing daily living task. - Recommendations MBS: No Treatment Warranted: Receptive/ Expressive Language, Cognition - Progress Prognosis: Good - Frequency Frequency: 1x/Week Duration: 4-6 Months - Goal #1-5 Goal #1: Sergio will utilize compensatory executive functioning / processing strategies identified and implemented during structured therapeutic tasks (i.e., note taking / list making, adhering to schedules, remove/ distractions, formulate a plan, double check work, talk out loud, etc.) to facilitate improved cognitive processing and achievement of the highest level of safe, independent functioning w/ min cues. Goal #2: Sergio will utilize learned compensatory strategies to assist w/ divergent naming of at least 10 items per category with less than 1 prompt across 2 sessions. Goal #3: Sergio will recall 5 or more items (i.e. grocery list, medication list, etc.) after a 30 minute delay given intermittent minimal verbal cues in order to increase independence during functional memory tasks. Goal #4: Sergio will read paragraph level information and answer questions about the material at 90% accuracy after a 5 minute delay. Goal #5: Sergio will complete alternating attention tasks (e.g. take notes while the therapist dictates information) given 10 or fewer requests for repetition. Education - Patient has Indicated that the Following Identified Educational Needs: None The Patient has indicated that they have no educational or learning abilities that may effect their care.: Yes - Patient Instruction Patient Education: Diagnosis, Treatment Plan, Goals
--- NOTE | 2021-12-21 16:18 | HP.SP.REEV ---
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 Smoking Status: Never smoker Hx Tobacco Use: No - Pain Is pain an issue with your current prescribed condition?: Yes Patient Allergies - Allergies Allergies No Known Allergies Allergy (Verified 11/16/21 10:10) Previous/Current Goals - Goals 1-5 Previous Goal #1: Sergio will utilize compensatory executive functioning / processing strategies identified and implemented during structured therapeutic tasks (i.e., note taking / list making, adhering to schedules, remove/ distractions, formulate a plan, double check work, talk out loud, etc.) to facilitate improved cognitive processing and achievement of the highest level of safe, independent functioning w/ min cues. Goal 1 Status: PROGRESSING: Pt completes a variety of executive functioning tasks with differing acc depending the nature of the task. Tasks containing money/math concepts are more challenging for Samy than a deductive reasoning puzzle. Samy continues to show some difficulty with problem solving skills and thought flexibility. Tasks specific to math/money concepts have been targeted with Samy showing difficulty with mental math when adding a total gale when given a list of items - Samy benefited from compensatory strategy of using a calculator, however Samy continues to have difficulty with speed/efficiency of using the calculator, counting money and providing change. Previous Goal #2: Sergio will utilize learned compensatory strategies to assist w/ divergent naming of at least 10 items per category with less than 1 prompt across 2 sessions. Goal 2 Status: GOAL MET: Pt with no overt signs of word finding difficulties that create a breakdown in communication. Word finding strategies have been discussed and practiced. Previous Goal #3: Sergio will recall 5 or more items (i.e. grocery list, medication list, etc.) after a 30 minute delay given intermittent minimal verbal cues in order to increase independence during functional memory tasks. Goal 3 Status: PROGRESSING: Pt's short-term memory skills across speech therapy sessions continue to progress. He often forgets to bring back tasks assigned between sessions. Pt often performs with greater than 80% acc during structured tasks in the session. Previous Goal #4: Sergio will read paragraph level information and answer questions about the material at 90% accuracy after a 5 minute delay. Goal 4 Status: GOAL MET: The majority of tasks Pt completes in therapy contain a reading component in order to complete. Pt benefits from referring back to paragraphs in order to recall information and double-check his work. Pt's recall of task directions is greater than 90% acc and benefits from only supervision. Previous Goal #5: Sergio will complete alternating attention tasks (e.g. take notes while the therapist dictates information) given 10 or fewer requests for repetition. Goal 5 Status: PROGRESSING: Pt completes alternating attention tasks with 100% acc for basic complexity tasks and between 40-66% acc for moderately complex tasks, which would be indicative of how he performs in daily activities outside of therapy. Pt often benefiting from min-moderate cues to improve acc of task completion to 80-100%. Pt would benefit from continuation of this goal through a focus of math/money concepts also. Pt demonstrating difficulty with alternating attention and thought flexibility in more complex brain puzzle tasks such as Sudoku with Pt with difficulty understanding directions and how to use the puzzle to solve the puzzle. CLQT - CLQT CLQT Administered: Yes CLQT: Cognitive Linguistic Quick Test (CLQT) is a criterion - referenced assessment designed for adults between the ages of 18 and 89 with known or suspected neurological dysfuntions. The CLQT is to assess strength and weaknesses in five cognitive domains. Severity ratings are within normal limits, mild, moderate, severe deficits. The subtests are as follows: Date: 12/21/21 - Attention Attention: WNL - Memory Memory: WNL - Executive Functions Executive Functions: WNL - Language Language: WNL - Visuospatial Skills Visuospatial Skills: WNL - Composite Severity Rating Composite Severity Rating: WNL - Clock Drawing Severity Rating Clock Drawing Severity Rating: WNL - CLQT Comments Impressions Pt progressing from Mild Cognitive impairment to functioning WNL based on this standardized assessments cut off scores, however Pt continues to demonstrate difficulty with tasks that are life-directed, such as managing money via totaling/counting/writing checks, efficient problem solving, use of memory strategies, organization of calendar tasks, etc. Pt would benefit from cont'd therapy to target these areas. Pt has made progress thus far with these targeted cognitive areas, however Pt continues to be outside of a functional range to reduce supports currently being provided at home. Plan - Plan Plan: Will recommend patient for weekly outpatient speech therapy to address mild cognitive impairment characterized by deficits in immediate and short-term memory, working memory, executive functioning, attention, and problem solving/reasoning. Patient would benefit from training in compensatory strategies for recall and word retrieval, as well as cognitive training to improve cognitive functioning. Without continued skilled ST services, Pt is at risk for decreased independence completing daily living tasks that allow him to regain independence at home without help from family. - Recommendations MBS: No Treatment Warranted: Yes Treatment Warranted: Cognition - Progress Prognosis: Good - Frequency Frequency: 1x/Week Additional (Frequency): 12 visits Duration: 3 Months Visits in this POC: 12 - Goal #1-5 Goal #1: Sergio will utilize compensatory executive functioning / processing strategies identified and implemented during structured therapeutic tasks (e.g., note taking / list making, adhering to schedules, remove/ distractions, formulate a plan, double check work, talk out loud, etc.) to facilitate improved cognitive processing and achievement of the highest level of safe, independent functioning w/ 90% acc given min cues. Goal #2: Sergio will participate in complex immediate and short-term (delayed recall) memory tasks (i.e. grocery list, medication list, etc.) with 90% acc given minimal verbal cues in order to increase independence during functional memory tasks. Goal #3: Sergio will complete divided, selective, and alternating attention tasks with greater than 80% acc given min cues. Goal #4: Sergio will complete complex problem solving/reasoning, safety awareness, and money/math concepts with greater than 80% acc independently to facilitate independence with iADLs at home. Goal #5: . Education - Patient has Indicated that the Following Identified Educational Needs: None The Patient has indicated that they have no educational or learning abilities that may effect their care.: Yes - Patient Instruction Patient Education: Diagnosis, Treatment Plan, Goals
--- NOTE | 2022-03-31 11:32 | HP.SP.DC_ITS ---
ST Discharge Summary - Discharged: Discharge: TEODORO SCHMITT is a 51 year old male who was seen for initial speech/language/cognitive evaluation at [facility] on 09/13/21 s/p a closed head traumatic brain injury at work. Pt has participated in speech therapy at this facility in the past immediately after his accident and returned due to noticing having difficulty with cognitive functioning again. Pt attended a total of 22 sessions following initial evaluation to target attention, word retrieval, problem solving/reasoning, memory, executive functioning, and math skills. Following re-evaluation of Pt?s current level of cognitive function with the FAVRES, self-report, and caregiver report, Pt deemed appropriate for d/c from speech therapy at this time. FAVRES testing is reported below - although the time it took Pt to complete each task was more than peers his age, Pt is completing the tasks correctly; Pt often double-checking his work for accuracy which increases the time it takes to complete each task. Pt reporting being satisfied with his performance on these tasks. His lower standard score for task 4 is likely due to Pt being less specific than test scoring required, however upon item analysis, Pt's verbiage would be appropriate for that type of interaction in day-to-day life. Pt's lower standard score for Task 3 Rationale is due to Pt being non-specific with verbiage from the text based on the test manual scoring - Pt's response would be considered adequate in day-to-day life. Pt provided w/home carry over activities to continue targeting complex executive functioning tasks as well as suggestions for external strategies. Pt discharged from speech therapy caseload on this date, 03/31/22. Thank you for allowing me to participate in the care of your Pt. Will reevaluate at Pt?s request following script from physician. FAVRES: Task 1: Accuracy Standard Score: 108; Rationale Standard Score: 106; Time Standard Score: 79. Task 2: Accuracy Standard Score: 106; Rationale Standard Score: 88; Time Standard Score: 69. Task 3: Accuracy Standard Score: 107; Rationale Standard Score: 51; Time Standard Score: 99. Task 4: Accuracy Standard Score: 74; Rationale Standard Score: 89; Time Standard Score: 91
== END 2022-03-27 11:03 | disposition home or self-care (01) ==
LOC: SP 08:00
PROVIDERS: PCP Family Medicine; Referring Provider Physician Assistant; Visit Provider Physician Assistant
DX: F07.81 Postconcussional syndrome (principal); F41.1 Generalized anxiety disorder; F32.2 Major depressive disorder, single episode, severe without psychotic features
CPT/HCPCS: 92507; 92523; 97129; 97130

== ENCOUNTER → 2022-07-31 | Outpatient (CLI) | payer MEDICAID, SELFPAY | END | disposition home or self-care (01) | LOC: LABSPEC 15:41 | PROVIDERS: PCP Family Medicine; Visit Provider Family Medicine | DX: Z11.59 Encounter for screening for other viral diseases (principal) | CPT/HCPCS: 87635; U0003; U0005 ==

== ENCOUNTER → 2024-03-04 | Outpatient (CLI) | payer MEDICAID, SELFPAY ==
[2024-03-04 12:23] LABS: Absolute Lymphocyte Count 1.75 X10^3/uL (0.83-4.51); Absolute Neutrophil Count 6.4 X10^3/uL (2.0-7.7); Basophil# 0.08 X10^3/uL; Basophil% 0.8 % (0-1); Eosinophil# 0.52 X10^3/uL; Eosinophils% 5.4 % (0-5); Hematocrit 43.6 % (40-54); Hemoglobin 14.3 g/dL (13.0-16.5); Lymphocyte # 1.75 X10^3/ul (0.83-4.51); Lymphocyte % 18.1 % (19-41); Mean Corp Hgb Conc 32.8 g/dL (32-36); Mean Corpuscular Hgb 27.9 pg (27.0-32.0); Mean Platelet Vol. 8.7 fl (6.2-12.0); Monocyte# 0.79 X10^3/uL; Monocyte% 8.2 % (0-10); NRBC Flagged by Analyzer 0 % (0-5); Neutrophil # 6.44 X10^3/uL (2.7-7.7); Neutrophil % 66.8 % (47-70); Platelet Count 252 K/mm3 (150-450); RBC Distribution Width CV 13.2 % (11.6-14.6); RBC Distribution Width SD 40.8 fl (35.1-43.9); Red Blood Count 5.13 M/mm3 (4.6-6.2); White Blood Count 9.7 K/mm3 (4.4-11.0)
[2024-03-04 13:23] LABS: ALB/GLOB Ratio 0.9 RATIO (0.9-2.4); AST(SGOT) 22 U/L (15-37); Alanine Aminotransfer ALT/SGPT 41 U/L (16-61); Albumin, Serum 3.9 g/dL (3.2-5.0); Alkaline Phosphatase 92 U/L (45-117); Anion Gap 8 (5-15); BUN 10 mg/dL (7-18); BUN/Creat Ratio 8.1 RATIO (10-20); Calcium,Total 9.6 mg/dL (8.5-10.1); Chloride 101 mmol/L (98-107); Creatinine, Serum 1.24 mg/dL (0.70-1.30); EST Glomerular Filtration Rate 65 mL/min (>60); Est Glom Filt Rate - Afr Amer 79 mL/min (>60); Globulin 4.2 g/dL (2.2-4.2); Glucose 120 mg/dL (74-106); Potassium 3.7 mmol/L (3.5-5.1); Protein, Total 8.1 g/dL (6.4-8.2); Sodium Level 133 mmol/L (136-145)
--- OUTSIDE RECORDS SUMMARY | 2024-03-04 14:20 | XMS RPT_ITS | CCD ---
Author Organization [facility] Inform ion Partnership [facility] Care Team Providers Care Cell Biology Scientist Name Role Phone Ele Bird Primary Care Provider MIRI WYATT Attending Unavailable ELE BIRD Primary Care Unavailable Ele Bird Primary Care Provider Allergies Allergy Classification Reported Allergen(s) Allergy Type Date of Onset Reaction(s) Facility (12 sources) Topiramate Propensity to adverse reactions 08-24-2020 [facility] Medications Current Medications Medication Drug Class(es) Dates Sig (Normalized) Sig (Original) DULoxetine 30 mg delayed release oral capsule (12 sources) Serotonin and Norepinephrine Reuptake Inhibitor Start: 11-24-2019 DULoxetine (Cymbalta) [address] capsule Take by mouth. 11/24/2019 Active 1.5 ml fremanezumab-vfrm 150 mg/ml auto-injector (15 sources) Start: 02-04-2024 fremanezumab (Ajovy) 225 MG/1.5ML auto-injector Indications: Intractable chronic migraine without aura and without status migrainosus Inject 3 pens (675mg) into the skin every 90 days 4.5 mL 3 02/04/2024 Active Start: 05-09-2022 End: 05-09-2023 fremanezumab (Ajovy) 225 MG/ 1.5ML auto-injector INJECT 3 PENS INTO THE SKIN EVERY 90 DAYS 4.5 mL 1 05/09/2022 05/09/2023 Active Start: 03-13-2022 End: 02-04-2024 fremanezumab (Ajovy) 225 MG/ 1.5ML auto-injector Indications: Intractable chronic migraine without aura and without status migrainosus Inject 1 pen (225 mg) under the skin every 30 (thirty) days. 1.5 mL 11 04/05/2023 02/04/2024 Discontinued (Reorder) lamoTRIgine 100 mg oral tablet (12 sources) Mood Stabilizer, Anti-epileptic Agent take 1 tablet by mouth in the morning lamoTRIgine (LaMICtal) 100 MG tablet Take 100 mg by mouth in the morning and 100 mg before bedtime. Active LORazepam 0.5 mg oral tablet (12 sources) Benzodiazepine Start: 11-24-19 LORazepam (Ativan) 0.5 MG tablet Take 1 mg by mouth. 11/24/2019 Active rimegepant 75 mg disintegrating oral tablet (16 sources) Start: 04-05-20 End: 01-17-20 24 take 1 tablet by mouth once daily as needed Rimegepant Sulfate (Nurtec) 75 MG tablet dispersible Indications: Intractable chronic migraine without aura and without status migrainosus Dissolve 1 tablet by mouth once daily as needed for migraine 8 tablet 3 01/17/2024 Active traZODone hydrochloride 100 mg oral tablet (12 sources) Serotonin Reuptake Inhibitor take 1 tablet by mouth once daily traZODone (Desyrel) 100 MG tablet Take 100 mg by mouth Nightly. Active Problems Active Problems Problem Classification Problem Date Documented Da te Episodic/Chronic Headache; including migraine (13 sources) Chronic intractable migraine without aura; Translations: [Chronic migraine without aura, intractable, without status migrainosus] Onset: 01-16-2024 Chronic Past or Other Problems Problem Classification Problem Date Documented Date Episodic/Chronic Blindness and vision defects (12 sources) Accommodative insufficiency; Translations: [Presbyopia] Onset: 12-01-2019 02-18-2022 Episodic Intracranial injury (12 sources) Traumatic brain injury; Translations: [TBI (traumatic brain injury)] Onset: 12-01-2019 02-18-2022 Episodic Other eye disorders (12 sources) Pain of left eye; Translations: [Ocular pain, left eye] Onset: 12-01-2019 02-18-2022 Episodic Results Test Name Value Interpretation Reference Range [facility]y Office Visiton 01-16-2024 Follow-up visit [id number] Teodoro Bustamante 1970 M Date Provider Department Center 01/16/2024 [id number] OSORIO [facility] JUVENAL None No family history on file Level of Service:56920 [place] OFFICE/OUTPATIENT ESTABLISHED LOW MDM 20 MIN Reason for Visit and Comments: Follow-up [604386] Migraine [401732] Headache [52] Normal [facility] PATINSon 01-16-2024 PATINS Continue Ajovy quarterly injections Nurtec as needed Follow up in 1 year or sooner if needed Normal [facility] Progress Noteon 01-16-2024 Progress Note Visit type: Established Patient Reason for Visit: Follow-up, Migraine, and Headache Assessment and Plan 1. Intractable chronic migraine without aura and without status migrainosus Subjective HPI: Last visit 03/[address] Li Hx of head injury September 2019 Struck in the head with a metal object POR-Abhilash Patti at [facility] in [place] [phone]. Case was closed end of 2021 Failed: Cymbalta, Topamax, Lexapro, Wellbutrin, Trazodone, Sumatriptan. Ajovy quarterly ONB quarterly --last injected 2021 Nurtec prn Aura of a feeling of dizziness 3-4 migraines per month Nurtec is effective Location-left side of head and frontal Photo and phonophobia. Nausea. No changes in dizziness. Taking Cymbalta for depression and pain REVIEW OF SYSTEMS: Review of Systems Constitutional: Negative. HENT: Negative. Eyes: Negative. Respiratory: Negative. Cardiovascular: Negative. Gastrointestinal: Negative. Endocrine: Negative. Genitourinary: Negative. Musculoskeletal: Negative. Skin: Negative. Allergic/Immunologic: Negative. Neurological: Positive for headaches. Hematological: Negative. Psychiatric/Behavioral : Negative. Allergies Allergen Reactions Topiramate Severe mood instability Outpatient Medications Prior to Visit Medication Sig Dispense Refill DULoxetine (Cymbalta) [address] capsule Take by mouth. lamoTRIgine (LaMICtal) 100 MG tablet Take 100 mg by mouth in the morning and 100 mg before bedtime. LORazepam (Ativan) 0.5 MG tablet Take 1 mg by mouth. Rimegepant Sulfate (Nurtec) 75 MG tablet dispersible Dissolve 1 tablet by mouth once daily as needed for migraine 8 tablet 3 traZODone (Desyrel) 100 MG tablet Take 100 mg by mouth Nightly. No facility-administered medications prior to visit. Past Medical History: Diagnosis Date Anxiety Blurry vision Cluster headache Decreased vision Depression Head injury Headache Headache, tension-type Light sensitivity Memory loss Migraine Thyroid disease Social History Tobacco Use Smoking status: Never Smokeless tobacco: Former Types: Snuff, Chew Quit date: 10/10/2023 Substance Use Topics Alcohol use: Not Currently Past Surgical History: Procedure Laterality Date MICRODISCECTOMY LUMBAR SPINE SURGERY 2009 TONSILLECTOMY No family history on file. Objective Vitals: BP (!) 138/92 (BP Location: Left arm, Patient Position: Sitting, BP Cuff Size: Large adult) Pulse 75 Ht 6' (1.829 m) Wt (!) 313 lb (142 kg) BMI 42.45 kg/m? General Appearance: Patient is in no apparent distress. Head is normocephalic, atraumatic Cardiovascular: Regular rate and rhythm. No heart murmurs. No carotid bruit Neurologic: Mentation: Alert and oriented x 3 [address] person, place and time. Speech and Language: Speech and language normal Concentration and Attention: Concentration normal Memory: Memory normal Fund of Knowledge: Fund of knowledge normal Cranial Nerves: II, III, IV, V, , VII, VIII, IX, X, XI, XII examined and were intact. Motor: Strength: Strength 5 out of 5 with normal tone Alternating Movements: Normal Cogwheel Rigidity: None Tone: Tone is normal Tremor / Involuntary Movements: None Deep Tendon Reflexes: 1 out of 4 symmetrical in all four limbs. Sensory: Normal sensation upper and lower extremities Coordination: Normal coordination upper and lower extremities Gait and Station: Station is normal. Gait is normal Data Reviewed and Summarized DIAGNOSTIC TESTING CBC: No results found for: WBC , RBC , HGB , HCT , MCV , MCH , MCHC , RDW , PLT , MPV CMP: No results found for: NA , K , CL , CO2 , BUN , CREATININE , AGRATIO , LABGLOM , GLUCOSE , GLU , PROT , CALCIUM , BILITOT , ALKPHOS , AST , ALT BMP: No results found for: NA , K , CL , CO2 , BUN , CREATININE , CALCIUM , LABGLOM , GLUCOSE , GLU PT/INR: No results found for: PROTIME , INR PTT: No results found for: APTT , PTT [APTT} FLP: No results found for: CHLPL , TRIG , HDL , LDLCALC , LDLDIRECT TSH: No results found for: TSH VITAMIN B12: No results found for: [id number] No results found for: PHENYTOIN , PHENOBARB , VALPROATE , CBMZ No components found for: TOPIRA @RESULTINGLABINFO@ No results found for: LEVETIRACETA , FERRITIN , CRP , GEOFF , ANCA No results found for: GENESIS , IMMUNOGLOBUL , OLIGOBANDS No results found for: [id number] , HEPCAB No results found for: CRP , ANATITER , ANCA FERRITIN: No results found for: FERRITIN ---- No image results found. @LASTAPPOINTMENTTHISPR OV@ IMPRESSION and PLAN: Problem List Items Addressed This Visit None Visit Diagnoses Intractable chronic migraine without aura and without status migrainosus - Primary Continue Ajovy quarterly injections Nurtec as needed Follow up in 1 year or sooner if needed No problem-specific Assessment & Plan notes found for this encounter. (more content not included)... [facility] 36on 11-28-2023 36 Message released to patient as written. Patient's further questions if applicable: Patient scheduled for 01/16/24 9:00 AM follow up. Please be advised. Were all questions from office addressed or relayed to the patient from encounter: Yes [facility] 36 Lm for patient to ca ll the office back, please relay providers message and schedule him an appointment [facility] 36 Refused as last visi t was 03/28 via telehealth and last in office visit was 11/24. Patient needs to be see in office. [facility] 36 Last ov- 03/13/22 Next ov- n/a [facility] TEODORO BUSTAMANTE ([id number]) 1970 M T Date Time Provider Department 11/14/19 RADHA MARCELOLA During your visit today, we recorded the following information about you: Shira Lassiter ADM 11/14/2019 8:50 AM Signed Relationship to patient: spouse 1.Reason for call: Patient's spouse called to discuss results of outside imaging. 2.Order being requested: Patient's spouse requesting a referral to [facility] at [facility]. Patient of Dr. Luiz Fisher RN, RN 11/14/2019 10:47 AM Signed [employer] message sent. America Fisher RN Allergies As of Date: 11/14/2019 (No Known Allergies) Date Reviewed: 06/24/2018 Reviewed by: Alpa Rincon LPN - Fully Assessed Reason for Visit: Multiple Concerns [253] Reason For Visit History Recorded Prescriptions as of 11/14/2019 Sig: PREDNISONE 20 MG TABLET Take 2 tablets by mouth once * ESCITALOPRAM 10 MG TABLET Take 10 mg by mouth once aden* BROMPHENIRAMINE-PSEUDO EPHEDRI* Take 5 mL by mouth four times* Problem List As Of Date: 11/14/2019 (None) Encounter Status:Closed by AMERICA FISHER on 11/14/19 [facility] Shelia 11-10-2019 [facility] TEODORO BUSTAMANTE ([id number]) 1970 [facility] Date Time Provider Department 11/10/19 RADHA MARCELO [facility] During your visit today, we recorded the following information about you: Shira Lasister ADM 11/10/2019 4:18 PM Signed Received imaging disk from [facility]. Images uploaded for review. Allergies As of Date: 11/10/2019 (No Known Allergies) Date Reviewed: 06/24/2018 Reviewed by: Alpa Rincon LPN - Fully Assessed Reason for Visit: Imaging Disk [Other] Prescriptions as of 11/10/2019 Sig: PREDNISONE 20 MG TABLET Take 2 tablets by mouth once * ESCITALOPRAM 10 MG TABLET Take 10 mg by mouth once aden* BROMPHENIRAMINE-PSEUDO EPHEDRI* Take 5 mL by mouth four times* Problem List As Of Date: 11/10/2019 (None) Encounter Status:Closed by SHIRA BLANC on 11/10/19 [facility] PROGRESSon 11-03-2019 PROGRESS HNO ID: [id number] Author: Radha Marcelo MD Service: ? Author Type: Physician Type: Progress Notes Filed: 11/11/2019 10:31 AM Note Text: Evaluation was completed by video. Patient consented to the video/telephone evaluation and its limitations. It will be necessary for them to schedule a follow up evaluation with me or other neurologists for formal physical examination and if necessary,other studies. Total duration of the visit was approximately 45 minutes. This included the visit, discussion with patient and review of records completed outside of the video/telephone interaction. Patient was accomompained by Marisol Bustamante: of the patient. CC: This a 49-year-old man who was evaluated by video for a closed head injury. On October 01, 2019 at 12 pound piece of a door hit him in the back of the head and on the left side. This knocked his head forward. He thinks that he may have blacked out for a second but did not actually lose consciousness. Since then he has had multiple medical issues His major complaint is that he has headaches every day. Headaches are usually behind the left eye which he describes as a sharp pain. There is also ringing in the ears left more than right. He says that his vision is different and he has to use glasses now. He used to have double vision but this is now present only when he is close to an object. He has difficulty tasting anything particularly sweet and salty but he also has some difficulty with smell. He has increased sensitivity to noise and sound from the left side. He had some left-sided tingling and this seems to have improved. He has difficulty with concentration. He says that when he tries to concentrate his speech worsens. He has had some difficulty with intermittent stuttering when he tries to talk. His notes that he has significant anger issues and that he cries easily. He has had difficulty with balance but this is somewhat better. His speech has remained the same for the last 1 month. He is getting speech therapy. Past medical history: He has no significant previous illnesses. He was on Lexapro for anxiety. A month prior to the injury he was started on thyroid for hypothyroidism. Review of systems: He has constipation. He has decreased hearing. He has decreased libido. His notes that he has chronic headaches and eye pain. He cannot lie on the left side and has poor quality sleep. He has been more he has had motion speak sickness and has not been driving. She asked about cervical radiculopathy since this was suggested to them by the primary care physician instructional assistant Elton Tian PA-C. 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 Physical examination is completed by video. He is awake alert. He is able to give history. His accompanied him. I obtained the history from both of them separately. He has intermittent difficulty with word finding. He is able to convey his ideas fairly well. His memory appears to be intact for the events that occurred. Range of movement of the neck is decreased with flexion. Other range of movement is relatively intact. Eye movements are normal. His gait is stable. With tandem gait he tends to keep his hands out but does not break stands. Impression: He has history of a closed head injury. He complains of difficulty with headaches behind the left eye and occasional double vision or impaired vision in the left eye. He has not been driving because of dizziness. He also has difficulty with concentration. He has difficulty with anger issues and cognitive dysfunction. IMPRESSION AND PLAN This is a patient with history of a closed head injury. 1. I think it would be best if he sees a neuro-anesthesiologist assistant certified to make sure there is no major injury to the left eye or the nerves that supply the left eye. I cannot make out any abnormalities from my limited examination by video. 2. I recommend a formal driving evaluation since she has not been driving. He has also had dizziness and concentration issues and I think will be best if a formal driving evaluation clears him so he can start driving. 3. He should continue speech therapy 4. He complains of difficulty with taste. This is an uncommon finding with head injury. A formal taste and smell evaluation may be needed to clarify this. It is more common to have smell issues but the taste issue would be unusual with head injury particularly closed head injury with no major abnormalities in his imaging studies. 5. They asked me about cervical radiculopathy. From what was evaluated in this examination I cannot make any specific recommendations relating to this. 6. He has anger issues that are common after closed head injury. I think it would be best if he sees psychiatry regarding this to make sure he does not need any changes in his medication. My expectation is that he will gradually improve. The exact rate which she will improve is uncertain. I told him that the more they do the better he will get and this is common for all neurological injuries. I was not able to review all the MRI scan images since they were not available. I had like to see the actual full MRI scan images of the brain and cervical spine. I dictated this note so that the patient and his were aware of my recommendations. He showed me an MRI scan imaging of the brain that he had some questions about regarding the left eye. From what I could see this showed a skewed image and it appears to be an artifactual abnormality in the left orbit. I cannot be certain about this since the images are difficult to evaluate by video. Addendum: November 11, 2019 I reviewed the MRI scan images and report on Teodoro Bustamante. This was done at [facility] on October 29. MRI scan of the brain is reported as normal. My review of the image shows that the images tilted and this shows the eyes asymmetrically. I believe this is what he thought was of concern regarding the left eye as reported above. He also had a CT of the cervical spine. This showed degenerative changes in the cervical spine particularly at C5-6 with borderline spinal stenosis . This was done on October 04, 2019. CT of the brain was reviewed. There are no obvious abnormalities. Radha Marcelo MD, Staff Neurologist The time of the note may be later than when the patient was seen November 03, 2019 12:12 PM I reviewed the records that are associated with this evaluation. This is a patient who had a work-related injury on 10/01/2019. A metal box over the door frame had to him on the head and the left side of the face. There was no loss of consciousness. He had been seen by ophthalmology and neurology. He continues to attend vestibular therapy and has had speech therapy. CT of the brain did not show any abnormalities. He complains of aching headaches and occasional kind of like double vision neck popping, and tingling in both hands. He has difficulty with following conversations. I reviewed the speech therapy evaluation. He has persistent attention deficit memory related problems. He is forgetful. He is distractible. He had an MRI scan of the cervical spine on 10/30/2019 that did not show any abnormalities. He had foraminal stenosis. Normal [facility] CNPNon 10-31-2019 CNPN Telephone (NENMMN) TEODORO BUSTAMANTE ([id number]) 1970 M [facility] Date Time Provider Department 10/31/19 RADHA MARCELO NENMMN During your visit today, we recorded the following information about you: Shira HEBERT 10/31/2019 4:26 PM Signed Received medical records from [facility]. In scanned documents for review. Allergies As of Date: 10/31/2019 (No Known Allergies) Date Reviewed: 06/24/2018 Reviewed by: Alpa Rincon LPN - Fully Assessed Reason for Visit: Received Outside Medical Records [[id number]] Prescriptions as of 10/31/2019 Sig: PREDNISONE 20 MG TABLET Take 2 tablets by mouth once * ESCITALOPRAM 10 MG TABLET Take 10 mg by mouth once aden* BROMPHENIRAMINE-PSEUDO EPHEDRI* Take 5 mL by mouth four times* Problem List As Of Date: 10/31/2019 (None) Encounter Status:Closed by SHIRA BLANC on 10/31/19 [facility] MR-Brain without Contrast IM PORTon 10-30-2019 MR-Brain without Contrast IMPORT Images were obtained outside of [facility] [id number] [facility] MR-Brain without Contrast IMPORT Images were obtained outside of [facility] [id number] [facility] CT-Spine Cervical without Co ntras IMPORTon 10-04-2019 CT-Spine Cervical without Contras IMPORT Images were obtained outside of [facility] [id number] [facility] CT-Spine Cervical without Contras IMPORT Images were obtained outside of [facility] [id number] [facility] CT-Brain/Head without Contra st IMPORTon 10-01-2019 CT-Brain/Head without Contrast IMPORT Images were obtained outside of [facility] [id number] [facility] PROGRESSon 08-03-2019 PROGRESS HNO ID: [id number] Author: Jessica Sterling Service: ? Author Type: Physician Type: Progress Notes Filed: 08/03/2019 11:09 AM Note Text: This Team Access Model visit is a virtual encounter. It required patient-provider interaction for the medical decision making as documented below. [employer] HIPAA secured video was used for evaluation of this patient. Telemedicine Evaluation for COVID-19 Infection SUBJECTIVE: Teodoro Bustamante is an 48 year old who presents with an illness that began 7 day(s) ago and are gradually worsening since that time. Was seen by another provider 4 days ago and treated with albuterol inhaler for bronchitis which is not helping. Has h/o bronchitis in the winter. Has the patient had any ill contacts? Yes, bronchitis Has the patient had contact with anyone confirmed with COVID-19 infection? No Does the patient have family with confirmed COVID-19 infection: No Does the patient have the following symptoms or signs? *Fever: (Temp 100.4F or greater) No *Coughing: Yes *Shortness of breath: Yes Nasal congestion: No Sore throat: Yes Muscle aches: Yes, slight Decreased appetite: No Vomiting: No Diarrhea: No Signs of dehydration (low fluid intake or voiding, diarrhea, dry mucus membranes): No Decreased level of consciousness: No *Fever plus coughing or shortness of breath answered yes is considered high risk PATIENT'S HIGH RISK CATEGORY ASSESSMENT: No high risk factors OBJECTIVE: Patient sounds or appears ill: No Patient is not able to speak in complete sentences: Yes Patient has labored breathing: No Patient is audibly coughing: No ASSESSMENT/PLAN: See encounter diagnoses and orders for additional plan. ASSESSMENT/PLAN: 1. Viral illness - ICD9: 079.99, ICD10: B34.9 (primary diagnosis) 2. Acute bronchitis, unspecified organism - ICD9: 466.0, ICD10: J20.9 Explained to patient why antibiotics are not indicated More info in AVS - PREDNISONE 20 MG TABLET Contact PCP if not improving. Teodoro Bustamante is an 48 year old who does not appear to have COVID-19 infection. recommend routine supportive measures of oral hydration, acetaminophen, and rest. This patient encounter involved the screening or treatment of novel coronavirus infection (COVID-19). SIGNATURE: Jessica Sterling MD DATE: August 03, 2019 [facility] Vital Signs Date Time Vital Sign Value Performing Clinician Faci lity 01-16-2024 08:42-0400 Body height 182.9 cm Miri ELLISON RN - MANAGER SOLAR Work Phone: [facility] 01-16-2024 08:42-0400 Body mass index (BMI) [Ratio] 42.45 kg/m2 Miri Wyatt LOMBARDI DEVELOPER - MANAGER SOLAR Work Phone: [facility] 01-16-2024 08:42-0400 Body weight 141.98 kg Miri ELLISON RN - MANAGER SOLAR Work Phone: [facility] 01-16-2024 08:42-0400 Diastolic blood pressure 92 mm[Hg] Miri Wyatt LOMBARDI DEVELOPER - MANAGER SOLAR Work Phone: [facility] 01-16-2024 08:42-0400 Heart rate 75 /min Miri ELLISON RN - MANAGER SOLAR Work Phone: [facility] 01-16-2024 08:42-0400 Systolic blood pressure 138 mm[Hg] Miri Wyatt APRN - MANAGER SOLAR Work Phone: [facility] Encounters Encounter Date Encounter Type Care Provider Facility Start: 02-04-2024 End: 02-04-2024 Refill Miri Wyatt APRN - MANAGER SOLAR Work Phone: [facility] Comment on above: Intractable chronic migraine without aura and without status migrainosus Start: 01-17-2024 End: 01-17-2024 Refill Miir Yoselin LOMBARDI DEVELOPER - MANAGER SOLAR Work Phone: [facility] Neu[facility] [place] [facility] Comment on above: Intractable chronic migraine without aura and without status migrainosus Start: 01-16-2024 End: 01-16-2024 Office outpatient visit 15 minutes Miri Yoselin LOMBARDI DEVELOPER - MANAGER SOLAR Work Phone: [facility] Comment on above: Intractable chronic migraine without aura and without status migrainosus (Primary Dx) Start: 01-16-2024 End: 01-16-2024 ambulatory MIRI YOSELIN [facility] Start: 11-28-2023 End: 11-28-2023 Refill Miri Wyatt LOMBARDI DEVELOPER - MANAGER SOLAR Work Phone: [facility] Comment on above: Intractable chronic migraine without aura and without status migrainosus Start: 08-02-2023 Refill Miri Yeboahl melly LOMBARDI DEVELOPER - MANAGER SOLAR Work Phone: [facility] Comment on above: Intractable chronic migraine without aura and without status migrainosus Start: 04-05-2023 Refill Miri Edilial melly LOMBARDI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
== END | disposition home or self-care (01) ==
LOC: MFPLAB 11:06
PROVIDERS: PCP Family Medicine; Referring Provider Family Medicine; Visit Provider Family Medicine
DX: R63.5 Abnormal weight gain (principal)
CPT/HCPCS: 36415; 80053; 84443; 85025

== ENCOUNTER → 2024-07-22 | Outpatient (CLI) | payer MEDICAID, SELFPAY ==
--- NOTE | 2024-07-22 09:45 | RAD_ITS ---
PROCEDURE: CERV SPINE 2 OR 3 VIEWS 07/22/2024 REASON FOR EXAM: NECK PAIN TECHNIQUE: 4 views of the cervical spine. COMPARISON: Cervical MRI of 10/30/2019. RAD/Cerv Spine 2 or 3 Views IMPRESSION: Again seen is mid to lower cervical spine degenerative disc disease, with mild- to-moderate disc narrowing at C5-C6, moderate disc narrowing at C6-C7 levels. There may also be mild disc narrowing at C4-C5. No fracture, subluxation, or prevertebral soft tissue swelling is seen. Straightening of the cervical spine is also noted. Reading Location: [id number]
== END | disposition home or self-care (01) ==
LOC: RAD 09:29
PROVIDERS: PCP Family Medicine; Referring Provider Anesthesiology Pain Medicine; Visit Provider Anesthesiology Pain Medicine
DX: M54.2 Cervicalgia (principal)
CPT/HCPCS: 72040

== ENCOUNTER 2024-10-03 08:30 | Outpatient (RCR) | payer MEDICAID, SELFPAY ==
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
--- NOTE | 2024-09-01 09:29 | HP.PTREVAL ---
Re-Evaluation Intro: Dr. Lyndsay Hassan MD, It has been my pleasure to treat TEODORO SCHMITT over the last 9 visits for Neck pain. Please see the progress note below for an update on the physical therapy plan of care! Subjective Subjective: Pt. reports overall progressing well. He reports being 80% better overall. He does have some intermittent sub occipital tightness, but has overall improved. Objective Objective/Function: ROM: Cervical spine: flexion min loss increase NW, ext min/nil loss mild increase NW, rotation min loss bilat increase NW, SB min loss NE. Pt. has full B shoulder ROM without increase in symptoms. Pt. continues to be tender throughout B sub occipitals L worse than R. MMT: Pt. has full strength throughout BUEs. Sleeping: pt. reports having some trouble staying asleep. He tend s to wake up at night and requires 1-2 hours to fall back asleep Plan Plan Plan: 1) Work on gentle cervical manual traction, extensor stretching 2) light sub occipital release 3) cervical retraction 4) deep cervical strengthening I am extending to work on these above things in order to reduce overall symptoms. Balance/Gait/Functional tests Balance/Special Test Scores Oswestry Neck Score: 30 Goals Goals Goal 1:: LTG: Pt. to be I with HEP. Goal Time Frame: 4-6 Weeks Goal Progress: Progressing Goal 2:: STG: Pt. to have full cervical ROM without increase in symptoms. Goal Time Frame: 2-4 Weeks Goal Progress: Progressing Goal 3:: LTG: Pt. to have increased mid trap, scapular strength to 5/5 throughout in order to maintain improved posture with all activities. Goal Time Frame: 4-6 Weeks Goal Progress: Goal Met Goal 4:: LTG: Pt. to complete all daily activities without increase in cervical spine symptoms. Goal Time Frame: 4-6 Weeks Goal Progress: Progressing Goal 5:: LTG: Pt. to sleep without increase in symptoms. Goal Time Frame: 4-6 Weeks Goal Progress: Progressing Anticipated Interventions Anticipated Interventions Patient/Client Instruction: Educate patient on: Condition, Plan of Care, Risk Factors and Benefits of Fitness Program For the Purpose of:: To facilitate caregiver knowledge, To improve self management, To prevent re-injury, To improve ability to perform tasks related to life management and To improve tolerance to ADL's Therapeutic Exercise to Include: Strength training, Power training, Postural training, Flexibilty training, Passive ROM, Active ROM, Belkis Exercises and Scapular Strength/Stabilization For the Purpose of:: To decrease pain, To increase ROM, To improve nutrient delivery to tissue, To increase oxygenation perfusion, To improve muscle performance and motor function and To increase flexibility/ROM Manual Therapy Techniques to Include: Mobilization and Soft tissue mobilization For the Purpose of:: To decrease pain, To decrease swelling/inflammation, To increase ROM, To improve nutrient delivery to tissue, To increase oxygenation perfusion, To improve muscle performance and motor function, To improve ability to perform ADL's, To decrease soft tissue restriction and To increase flexibility/ROM Re-Evaluation Ending Re-evaluation ending: Please do not hesitate to contact me at [phone] by phone or if you have questions or concerns regarding this new plan of care! Sincerely, Amrit Mccormick DPT
--- NOTE | 2024-10-03 09:31 | HP.PTDCSUM ---
Discharge Summary D/C summary: It has been my pleasure to treat TEODORO SCHMITT referred by Dr. Lyndsay Hassan MD, with the diagnosis of Neck pain for a total of 17 visit(s). Discharge Date: 10/03/24 Please see the following information for a summary of their discharge status. Subjective Subjective: Pt. reports feeling a little tight today. Pt. lifted some totes and this might have caused some increased symptoms. He reprots being 75% better overall. Pain cervical spine: Pain Intensity (Out of 10): 1 Overall Improvement % Improvement: 75 Objective Objective/Function: Pt. has full strength in BUEs without pain. 5/5 cervical isometrics CERVICAL: Pt. has close to full ROM except. flexion which is tight. Pt. reports no increase in neck pain with ROM Pt. reports being able to sleep without issues, except for allergies. He reports being I with HEP at this point in time. I would like him to continue with HEP 3-4times per week. Pt. consents. Goals Goal 1:: LTG: Pt. to be I with HEP. Goal Progress: Goal Met Goal 2:: STG: Pt. to have full cervical ROM without increase in symptoms. Goal Progress: Goal Met Goal 3:: LTG: Pt. to have increased mid trap, scapular strength to 5/5 throughout in order to maintain improved posture with all activities. Goal Progress: Goal Met Goal 4:: LTG: Pt. to complete all daily activities without increase in cervical spine symptoms. Goal Progress: Goal Met Goal 5:: LTG: Pt. to sleep without increase in symptoms. Goal Progress: Goal Met Plan Plan: PT. to be DC from PT this date. D/C Information d/c sentence: If there are questions or concerns regarding this patient's physical therapy, please feel free to call me at [phone]. Thank you for the referral of this patient. Sincerely, Amrit Aldana Sipos, DPT Balance/Gait/Functional tests Balance/Special Test Scores Oswestry Neck Score: 17 Improvement % Improvement: 75
== END 2024-10-03 19:00 | disposition home or self-care (01) ==
LOC: PT 08:30
PROVIDERS: PCP Family Medicine; Referring Provider Anesthesiology Pain Medicine; Visit Provider Anesthesiology Pain Medicine
DX: M54.2 Cervicalgia (principal)
CPT/HCPCS: 97110; 97140; 97161; 97530

== ENCOUNTER → 2025-03-30 | Outpatient (CLI) | payer MEDICAID, SELFPAY ==
[2025-03-30 15:23] LABS: Hematocrit 40.9 % (40-54); Hemoglobin 13.8 g/dL (13.0-16.5); Immature Granulocytes Count 0.050 X10^3/uL (0.0-0.0); Mean Corp Hgb Conc 33.7 g/dL (32-36); Mean Corpuscular Volume 83.3 fL (80-94); Mean Platelet Vol. 9.2 fl (6.2-12.0); NRBC Flagged by Analyzer 0 % (0-5); Platelet Count 252 K/mm3 (150-450); RBC Distribution Width CV 13.1 % (11.6-14.6); RBC Distribution Width SD 39.7 fl (35.1-43.9); Red Blood Count 4.91 M/mm3 (4.6-6.2); White Blood Count 8.8 K/mm3 (4.4-11.0)
[2025-03-30 15:53] LABS: CRP 17.20 mg/L (0.0-3.0)
[2025-03-30 15:58] LABS: AST(SGOT) 34 U/L (<=37); Alanine Aminotransfer ALT/SGPT 52 U/L (<=46); Albumin, Serum 4.5 g/dL (3.5-5.0); Alkaline Phosphatase 87 U/L (40-129); Anion Gap 15 (5-15); BUN 12 mg/dL (4-19); BUN/Creat Ratio 12.2 RATIO (10-20); Calcium,Total 9.0 mg/dL (7.6-11.0); Carbon Dioxide 22.7 mmol/L (21.0-32.0); Chloride 101 mmol/L (98-108); Globulin 2.6 g/dL (2.2-4.2); Glucose 124 mg/dL (70-99); Potassium 3.8 mmol/L (3.3-5.1); Syphilis Antibodies Nonreactive (Nonreactive)
[2025-04-01 14:09] LABS: ANTINUCLEAR ANTIBODIES DIRECT Negative (Negative)
== END | disposition home or self-care (01) ==
LOC: MFPLAB 12:27
PROVIDERS: PCP Family Medicine; Visit Provider Family Medicine
DX: A53.0 Latent syphilis, unspecified as early or late (principal)
CPT/HCPCS: 36415; 80053; 84443; 85025; 85652; 86038; 86140; 86780

== ENCOUNTER → 2025-04-17 | Outpatient (CLI) | payer MEDICAID, SELFPAY ==
[2025-04-17 10:48] LABS: Mucous, Urine 0 SEEN /hpf (<or=2+); Red Blood Cells-Urine 0 SEEN /hpf (0-5); Squamous Epithelial Cells - UA 0 SEEN /hpf (0-5)
[2025-04-17 12:37] LABS: Hematocrit 40.2 % (40-54); Hemoglobin 13.4 g/dL (13.0-16.5); Immature Granulocytes Count 0.080 X10^3/uL (0.0-0.0); Mean Corp Hgb Conc 33.3 g/dL (32-36); Mean Corpuscular Volume 84.3 fL (80-94); Mean Platelet Vol. 9.2 fl (6.2-12.0); NRBC Flagged by Analyzer 0 % (0-5); Platelet Count 300 K/mm3 (150-450); RBC Distribution Width CV 13.0 % (11.6-14.6); RBC Distribution Width SD 39.8 fl (35.1-43.9); Red Blood Count 4.77 M/mm3 (4.6-6.2); White Blood Count 12.0 K/mm3 (4.4-11.0)
[2025-04-17 12:46] LABS: Color, Urine Yellow (Yellow); Glucose, Dipstick 50 mg/dl (Normal); Ketone-Dipstick Negative (Negative); Leukocyte Esterase-Dipstick Negative /ul (Negative); Nitrite-Dipstick Negative (Negative); Occult Blood-Urine Negative /ul (Negative); Protein-Dipstick 15 mg/dl (Negative); Specific Gravity, Urine 1.015 (1.002-1.030); Urine Bilirubin Dipstick Negative (Negative)
[2025-04-17 13:07] LABS: CRP 15.30 mg/L (0.0-3.0); Free T3 3.0 pg/mL (2.18-3.98); PSA,Total- Diagnostic 0.82 ng/mL (0.00-4.00)
[2025-04-21 20:08] LABS: QNTFERON TB Mitogen Value > 10.00 IU/mL (.); QNTFERON TB Nil Value 0.08 IU/mL (.); QNTFERON TB1+ Ag Value 0.03 IU/mL (.); QNTFERON TB2+ Ag Value 0.02 IU/mL (.); QNTIFERON TB Positive Criteria Negative (Negative)
[2025-04-22 11:09] LABS: ANTINUCLEAR ANTIBODIES DIRECT Negative (Negative); Anti-Chromatin <0.2 AI (0.0-0.9); Anti-Jo <0.2 AI (0.0-0.9); Anti-dsDNA Ab 1 IU/mL (0-9); Anti-ribosomal P Antibodies <0.2 AI (0.0-0.9); SJOGREN'S Anti-SS-A test < 0.2 AI (0.0-0.9); SJOGREN'S Anti-SS-B test < 0.2 AI (0.0-0.9); Smith/RNP Ab <0.2 AI (0.0-0.9)
== END | disposition home or self-care (01) ==
LOC: MTLAB 10:42
PROVIDERS: PCP Family Medicine; Referring Provider Family Medicine; Visit Provider Family Medicine
DX: D72.10 Eosinophilia, unspecified (principal); E03.9 Hypothyroidism, unspecified; R79.82 Elevated C-reactive protein (CRP)
CPT/HCPCS: 87177; 87209; 36415; 81001; 84153; 84439; 84443; 84481; 85025; 85652; 86038; 86140; 86225; 86235; 86480; 87086; 87506